=== PATIENT | female | born 1975 | race Caucasian/White ===

== ENCOUNTER → 2017-08-16 | Outpatient (CLI) | payer OTHER ==
[~2017-08-16] MED LIST: AZIT500T3 PO
--- NOTE | 2017-08-16 09:39 | DIAGNOSTIC IMAGING REPORT ---
TWO VIEW CHEST CLINICAL HISTORY: Migraine headache. Cough. FINDINGS: PA and lateral chest radiographs are compared to study dated 05/31/2013. The cardiomediastinal silhouette is unremarkable. The lungs and pleural spaces are clear. There is no pneumothorax. The bony thorax appears intact. IMPRESSION: No active disease in the chest. Electronically signed by: Robert Rodriguez M.D. 08/16/2017 9:38 AM Dictated Date/Time: 08/16/2017 9:37 AM
== END | disposition home or self-care (01) ==
LOC: C.RAD1850 09:11
PROVIDERS: ATTEND Internal Medicine
DX: G43.909 Migraine, unspecified, not intractable, without status migrainosus (principal); R05 Cough

== ENCOUNTER 2019-03-05 22:15 | Inpatient (IN) ==
--- OUTSIDE RECORDS SUMMARY | 2019-03-05 22:18 | External Medical Summary | Continuity of Care Document ---
:1975 Author Name Cindi Rodriges, Provider Address Unavailable Unavailable , Care Team Providers Name Role Phone Michelle [email or web address] MICHELLE WILLIAM M.D. Unavailable Unavailable Unavailable Unavailable Unavailable Problems Cough (786.2) (R05) History of squamous cell carcinoma (V10.89) (Z85.89) Status: Resolved Migraine headache (346.90) (G43.909) Depression (311) (F32.9) Anxiety (300.00) (F41.9) Allergies and Adverse Reactions No Known Drug Allergies (Allergy) Medications hydrOXYzine Pamoate 50 MG Oral Capsule; TAKE 1 CAPSULE 3 TIMES DAILY NEEDED. Antelmo William Start: 06-Aug-2017 Quantity: 30 Refills: 1 FLUoxetine HCl - 20 MG Oral Capsule; TAKE 1 CAPSULE Daily Start: 06-Aug-2017 Quantity: 30 Refills: 6 Procedures History of ablation Status: Completed Immunizations Fluzone Quadrivalent 0.5 ML Intramuscular Suspension On: Jan-2015 Tdap (Adacel) On: 05-Oct-2015 Family History Grandmother Family history of Alcohol abuse (305.00) (F10.10) Status: Ac tive Grandfather Family history of Alcohol abuse (305.00) (F10.10) Status: Ac tive Sister Family history of seizures (V19.8) (Z84.89) Status: Active Social History - Smoking Status Former smoker Plan of Treatment Planned Observations Planned Goals not documented Results No Known Results Results not documented Encounters Appointment; Michelle William M.D. 06-Aug-2017 13:30 Encounter Diagnosis: Problem not documented Appointment; [place] [id number] 06-Aug-2017 13:15 Encounter Diagnosis: Problem not documented
[2019-03-05 22:49] LABS: Appearance Urine Cloudy (Clear); Bacteria Urine Automated 1+ (Negative); Bilirubin Urine Negative (Negative); Blood Urine Negative (Negative); Color Urine Yellow; Epithelial Cell Urine Auto >30 /lpf (0-5); Glucose Urine UA Negative (Negative); Ketones Urine Negative (Negative); Leukocyte Esterase Urine Negative (Negative); Nitrite Urine Negative (Negative); Protein Urine Negative (Negative); RBC Urine Automated 0-4 /hpf (0-4); Specific Gravity Urine 1.011 (1.000-1.030); Urobilinogen Urine Negative (Negative); pH Urine 5.5 (4.5-7.5)
[2019-03-05 23:07] LABS: Amphetamines+Metham, Urine Neg (Neg); Barbiturates, Urine Neg (Neg); Benzodiazepine, Urine Neg (Neg); Cocaine, Urine Neg (Neg); MDMA (Ecstacy), Urine Neg (Neg); Methadone, Urine Neg (Neg); Opiate, Urine Neg (Neg); Phencyclidine, Urine Neg (Neg)
[2019-03-05 23:08] LABS: Basophils # (auto) 0.02 K/uL (0-0.2); Basophils % (auto) 0.2 %; Eosinophils % (auto) 1.2 %; Hematocrit (blood only) 41.5 % (37-47); Hemoglobin 14.4 g/dL (12.0-16.0); Immature Granulocytes # (auto) 0.02 K/uL (0.00-0.02); Immature Granulocytes % (auto) 0.2 %; Lymphocytes # (auto) 2.12 K/uL (1.2-3.4); Lymphocytes % (auto) 25.4 %; Mean Corpuscular Hemoglobin 30.3 pg (25-34); Mean Corpuscular Hgb Conc 34.7 g/dL (32-36); Mean Corpuscular Volume 87.2 fL (80-100); Mean Platelet Volume 8.9 fL (7.4-10.4); Monocytes # (auto) 0.43 K/uL (0.11-0.59); Monocytes % (auto) 5.1 %; Neutrophils # (auto) 5.67 K/uL (1.4-6.5); Neutrophils % (auto) 67.9 %; Platelet Count 388 K/uL (130-400); RDW Coefficient of Variation 12.6 % (11.5-14.5); RDW Standard Deviation 40.6 fL (36.4-46.3); Red Blood Count 4.76 M/uL (4.2-5.4); White Blood Count 8.36 K/uL (4.8-10.8)
[2019-03-05 23:27] LABS: Albumin Level 3.5 gm/dl (3.4-5.0); BUN Creatinine Ratio 12.8 (10-20); Calcium 8.9 mg/dl (8.5-10.1); Est GFR (African American) 70.4; Est GFR (Non-African American) 60.8; Potassium 3.7 mmol/L (3.5-5.1)
[2019-03-05 23:30] LABS: Acetaminophen < 2 ug/ml (10-30)
[2019-03-05 23:31] LABS: Salicylate < 1.7 mg/dl (2.8-20)
[2019-03-05 23:34] LABS: Pregnancy Test, Serum Negative (Negative)
[2019-03-05 23:37] LABS: Bilirubin,Total 0.2 mg/dl (0.2-1); Globulin 3.7 gm/dl (2.5-4.0); Thyroid Stimulating Hormone 3.45 uIu/ml (0.300-4.500); Total Protein 7.2 gm/dl (6.4-8.2)
--- NOTE | 2019-03-05 23:59 | Emergency Department Note ---
Entered by Shaista Patino acting as a scribe for Jose Colin MD History of Present Illness General Chief complaint: Mental Health Evaluation Stated complaint: DEPRESSION Time Seen by Provider: 03/05/19 22:24 Source: patient History of Present Illness Provider complaint: suicidal ideation Onset (ago): minute(s) (prior to arrival ) Location: left and right Severity: similar to prior episodes Maximum Pain Intensity: 0 Quality: + other (suicidal ideation) Associated symptoms: + other (Positive lethargy; Negative lower extremity pain; Negative lower extremity swelling. ) Treatments prior to arrival: none The patient, who is a 43 year old female with a medical history of bipolar two depression, presents to the Emergency Room with complaints of suicidal ideation that has worsened tonight. The patient expresses that she has a suicidal plan, which is to drink vodka, overdose on her medication and cut her wrist in the bathroom. The patient states that she has been having these thoughts in the middle of January. The patient explains that she has delayed proceeding on her plan due to her mother and daughters birthdays. The patient reports that she attempted to hurt herself 5 years ago by medication overdose. The patient reports the she has recently had a change of medication that has not had the same effect as prior. The patient states that her medication was changed due to weight gain. The patient denies excessive drinking or drug use. The patient states that she is very lethargic and her job is her only motivation to leave her bed. The patient denies lower extremity pain or swelling. Home Medications Home Medications Medication Instructions Recorded Confirmed Type buspirone 10 mg PO BID 03/05/19 03/05/19 History fluoxetine 20 mg PO QAM 03/05/19 03/05/19 History fluoxetine 40 mg PO QAM 03/05/19 03/05/19 History hydroxyzine HCl 25 mg PO TID PRN 03/05/19 03/05/19 History lurasidone [Latuda] 20 mg PO DAILY 03/05/19 03/05/19 History topiramate 50 mg PO BID 03/05/19 03/05/19 History trazodone 100 mg PO ONCE PM 03/05/19 03/05/19 History Allergies Allergy/AdvReac Type Severity Reaction Status Date / Time No Known Allergies Allergy Unknown Verified 03/05/19 22:44 Past Med/Surg History Medical History Acute bronchitis (Acute) Diarrhea (Acute) Influenza-like symptoms (Acute) Noncompliance with medication regimen (Acute) Suicidal ideation (Acute) Suicidal ideation (Acute) Upper respiratory infection (Acute) Social History Feels Safe at Home: Yes Smoking Status: Former smoker Review of Systems See HPI for pertinent positives & negatives. and A total of 10 systems reviewed and were otherwise negative Physical Exam Vital Signs Vital Signs - 24 hr 03/05/19 22:16 03/06/19 01:01 Temperature 36.7 C Temperature Source Oral Sepsis Recent Fever Within 48 Hours No Sepsis New/Unexplained Change in Mental Status No Sepsis Action Taken by Nursing No Action Required Pulse Rate 105 H Pulse Rate [Finger] 78 Respiratory Rate 18 18 Respiratory Effort / Characteristics Non-Labored Spontaneous Respiratory Depth Normal Blood Pressure 186/105 H Blood Pressure [Right Arm] 137/92 Blood Pressure Mean 132 Blood Pressure Mean [Right Arm] 107 Pulse Oximetry 98 98 Oxygen Delivery Method Room Air Room Air General: teary-eyed appearing middle age female that is very depressed. HEENT: Normal cephalic atraumatic. Pupils are equal round and reactive to light. Extraocular movements are intact. Oropharynx is pink with moist mucous membranes. No swelling of the mouth lips or tongue. Neck: Supple with a midline trachea. No meningeal signs or stiffness, no JVD or bruits. No Stridor. Chest: Clear to auscultation bilaterally. No wheezes or rhonchi. No increased work of breathing. Heart: regular rate and rhythm. Abdomen: Soft nontender, nondistended without rebound guarding or rigidity. Extremities: No cyanosis clubbing or edema. No calf tenderness or asymmetry Spine/Back. Non tender to palpation. No CVA tenderness Skin: Good turgor without rashes. Neurologic exam: Cranial nerves two through 12 are intact. Motor and sensation are intact and symmetrical throughout. Alert and oriented x3. Answers questions appropriately. Psychology: Teary eye and has suicidal ideation. Denies homicidal ideation. Course 2226: Past medical records reviewed. The patient was evaluated in room A7. A complete history and physical exam was performed. 2335: I reassessed the patient who is medically cleared. 3 south will evaluate her for further management. Medical Decision Making Differential Diagnosis Differential diagnosis includes: depression, anxiety, suicidal ideation, electrolyte or metabolic abnormalities, toxicological, as well as others were entertained. Medical Records Attestation: I reviewed the patient's medical records. Home Medications Current Medication List: was personally reviewed by me Laboratory Data Attestation: I reviewed the patient's lab results. Result diagrams: 03/05/19 23:00 03/05/19 23:00 Lab Results 03/05/19 03/05/19 03/05/19 Range/Units 22:36 22:36 23:00 WBC (4.8-10.8) K/uL RBC (4.2-5.4) M/uL Hgb (12.0-16.0) g/dL Hct (37-47) % MCV (80-100) fL MCH (25-34) pg MCHC (32-36) g/dL RDW Std Deviation (36.4-46.3) fL RDW Coeff of Landy (11.5-14.5) % Plt Count (130-400) K/uL MPV (7.4-10.4) fL Immature Gran % (Auto) % Neut % (Auto) % Lymph % (Auto) % [place] % (Auto) % Eos % (Auto) % Baso % (Auto) % Immature Gran # (Auto) (0.00-0.02) K/uL Neut # (Auto) (1.4-6.5) K/uL Lymph # (Auto) (1.2-3.4) K/uL [place] # (Auto) (0.11-0.59) K/uL Eos # (Auto) (0-0.5) K/uL Baso # (Auto) (0-0.2) K/uL Sodium (136-145) mmol/L Potassium (3.5-5.1) mmol/L Chloride (98-107) mmol/L Carbon Dioxide (21-32) mmol/L Anion Gap (3-11) BUN (7-18) mg/dl Creatinine (0.6-1.2) mg/dl Est Cr Clr Drug Dosing ml/min Est GFR ( Amer) Est GFR (Non-Af Amer) BUN/Creatinine Ratio (10-20) Glucose (70-99) mg/dl Calcium (8.5-10.1) mg/dl Total Bilirubin (0.2-1) mg/dl AST (15-37) U/L ALT (12-78) U/L Alkaline Phosphatase (45-117) U/L Total Protein (6.4-8.2) gm/dl Albumin (3.4-5.0) gm/dl Globulin (2.5-4.0) gm/dl Albumin/Globulin Ratio (0.9-2) TSH (0.300-4.500) uIu/ml HCG, Qual Negative (Negative) Urine Color Yellow Urine Appearance Cloudy A (Clear) Urine pH 5.5 (4.5-7.5) Ur Specific [place] 1.011 (1.000-1.030) Urine Protein Negative (Negative) Urine Glucose (UA) Negative (Negative) Urine Ketones Negative (Negative) Urine Blood Negative (Negative) Urine Nitrite Negative (Negative) Urine Bilirubin Negative (Negative) Urine Urobilinogen Negative (Negative) Ur Leukocyte Esterase Negative (Negative) Urine WBC (Auto) 5-10 H (0-5) /hpf Urine RBC (Auto) 0-4 (0-4) /hpf U Hyaline Cast (Auto) 1-5 (0-5) /lpf U Epithel Cells (Auto) >30 H (0-5) /lpf Urine Bacteria (Auto) 1+ H (Negative) Salicylates (2.8-20) mg/dl Urine Opiates Screen Neg (Neg) Ur Methadone, Qual Neg (Neg) Acetaminophen (10-30) ug/ml Urine Barbiturates Neg (Neg) Ur Phencyclidine (PCP) Neg (Neg) U Amphetamin/Meth Scrn Neg (Neg) MDMA (Ecstasy) Screen Neg (Neg) U Benzodiazepines Scrn Neg (Neg) Ur Cocaine Metabolite Neg (Neg) U Marijuana (THC) Screen Neg (Neg) Ethyl Alcohol mg/dL (0-3) mg/dl 03/05/19 03/05/19 03/05/19 Range/Units 23:00 23:00 23:00 WBC 8.36 (4.8-10.8) K/uL RBC 4.76 (4.2-5.4) M/uL Hgb 14.4 (12.0-16.0) g/dL Hct 41.5 (37-47) % MCV 87.2 (80-100) fL MCH 30.3 (25-34) pg MCHC 34.7 (32-36) g/dL RDW Std Deviation 40.6 (36.4-46.3) fL RDW Coeff of Landy 12.6 (11.5-14.5) % Plt Count 388 (130-400) K/uL MPV 8.9 (7.4-10.4) fL Immature Gran % (Auto) 0.2 % Neut % (Auto) 67.9 % Lymph % (Auto) 25.4 % [place] % (Auto) 5.1 % Eos % (Auto) 1.2 % Baso % (Auto) 0.2 % Immature Gran # (Auto) 0.02 (0.00-0.02) K/uL Neut # (Auto) 5.67 (1.4-6.5) K/uL Lymph # (Auto) 2.12 (1.2-3.4) K/uL [place] # (Auto) 0.43 (0.11-0.59) K/uL Eos # (Auto) 0.10 (0-0.5) K/uL Baso # (Auto) 0.02 (0-0.2) K/uL Sodium 139 (136-145) mmol/L Potassium 3.7 (3.5-5.1) mmol/L Chloride 109 H (98-107) mmol/L Carbon Dioxide 20 L (21-32) mmol/L Anion Gap 10.0 (3-11) BUN 14 (7-18) mg/dl Creatinine 1.11 (0.6-1.2) mg/dl Est Cr Clr Drug Dosing 77.0 ml/min Est GFR ( Amer) 70.4 Est GFR (Non-Af Amer) 60.8 BUN/Creatinine Ratio 12.8 (10-20) Glucose 108 H (70-99) mg/dl Calcium 8.9 (8.5-10.1) mg/dl Total Bilirubin 0.2 (0.2-1) mg/dl AST 10 L (15-37) U/L ALT 17 (12-78) U/L Alkaline Phosphatase 74 (45-117) U/L Total Protein 7.2 (6.4-8.2) gm/dl Albumin 3.5 (3.4-5.0) gm/dl Globulin 3.7 (2.5-4.0) gm/dl Albumin/Globulin Ratio 1.0 (0.9-2) TSH 3.450 (0.300-4.500) uIu/ml HCG, Qual (Negative) Urine Color Urine Appearance (Clear) Urine pH (4.5-7.5) Ur Specific [place] (1.000-1.030) Urine Protein (Negative) Urine Glucose (UA) (Negative) Urine Ketones (Negative) Urine Blood (Negative) Urine Nitrite (Negative) Urine Bilirubin (Negative) Urine Urobilinogen (Negative) Ur Leukocyte Esterase (Negative) Urine WBC (Auto) (0-5) /hpf Urine RBC (Auto) (0-4) /hpf U Hyaline Cast (Auto) (0-5) /lpf U Epithel Cells (Auto) (0-5) /lpf Urine Bacteria (Auto) (Negative) Salicylates < 1.7 L (2.8-20) mg/dl Urine Opiates Screen (Neg) Ur Methadone, Qual (Neg) Acetaminophen < 2 L (10-30) ug/ml Urine Barbiturates (Neg) Ur Phencyclidine (PCP) (Neg) U Amphetamin/Meth Scrn (Neg) MDMA (Ecstasy) Screen (Neg) U Benzodiazepines Scrn (Neg) Ur Cocaine Metabolite (Neg) U Marijuana (THC) Screen (Neg) Ethyl Alcohol mg/dL (0-3) mg/dl 03/05/19 Range/Units 23:00 WBC (4.8-10.8) K/uL RBC (4.2-5.4) M/uL Hgb (12.0-16.0) g/dL Hct (37-47) % MCV (80-100) fL MCH (25-34) pg MCHC (32-36) g/dL RDW Std Deviation (36.4-46.3) fL RDW Coeff of Landy (11.5-14.5) % Plt Count (130-400) K/uL MPV (7.4-10.4) fL Immature Gran % (Auto) % Neut % (Auto) % Lymph % (Auto) % [place] % (Auto) % Eos % (Auto) % Baso % (Auto) % Immature Gran # (Auto) (0.00-0.02) K/uL Neut # (Auto) (1.4-6.5) K/uL Lymph # (Auto) (1.2-3.4) K/uL [place] # (Auto) (0.11-0.59) K/uL Eos # (Auto) (0-0.5) K/uL Baso # (Auto) (0-0.2) K/uL Sodium (136-145) mmol/L Potassium (3.5-5.1) mmol/L Chloride (98-107) mmol/L Carbon Dioxide (21-32) mmol/L Anion Gap (3-11) BUN (7-18) mg/dl Creatinine (0.6-1.2) mg/dl Est Cr Clr Drug Dosing ml/min Est GFR ( Amer) Est GFR (Non-Af Amer) BUN/Creatinine Ratio (10-20) Glucose (70-99) mg/dl Calcium (8.5-10.1) mg/dl Total Bilirubin (0.2-1) mg/dl AST (15-37) U/L ALT (12-78) U/L Alkaline Phosphatase (45-117) U/L Total Protein (6.4-8.2) gm/dl Albumin (3.4-5.0) gm/dl Globulin (2.5-4.0) gm/dl Albumin/Globulin Ratio (0.9-2) TSH (0.300-4.500) uIu/ml HCG, Qual (Negative) Urine Color Urine Appearance (Clear) Urine pH (4.5-7.5) Ur Specific [place] (1.000-1.030) Urine Protein (Negative) Urine Glucose (UA) (Negative) Urine Ketones (Negative) Urine Blood (Negative) Urine Nitrite (Negative) Urine Bilirubin (Negative) Urine Urobilinogen (Negative) Ur Leukocyte Esterase (Negative) Urine WBC (Auto) (0-5) /hpf Urine RBC (Auto) (0-4) /hpf U Hyaline Cast (Auto) (0-5) /lpf U Epithel Cells (Auto) (0-5) /lpf Urine Bacteria (Auto) (Negative) Salicylates (2.8-20) mg/dl Urine Opiates Screen (Neg) Ur Methadone, Qual (Neg) Acetaminophen (10-30) ug/ml Urine Barbiturates (Neg) Ur Phencyclidine (PCP) (Neg) U Amphetamin/Meth Scrn (Neg) MDMA (Ecstasy) Screen (Neg) U Benzodiazepines Scrn (Neg) Ur Cocaine Metabolite (Neg) U Marijuana (THC) Screen (Neg) Ethyl Alcohol mg/dL < 3.0 (0-3) mg/dl Blood Pressure Blood Pressure Findings: Normal blood pressure MDM Narrative This patient comes in as described above. She has a history of bipolar and has been feeling increasingly depressed over the last several weeks she has had suicidal ideations and has had a plan to overdose she has not overdosed. She did not try to hurt herself she has a remote history of overdose several years ago. During my exam she is teary-eyed. She denies any homicidal ideations. She was a year ago and has joint custody of the children the kids have not been with her this week. She does not drink alcohol appreciably. No drug use. Multiple blood testing was obtained she is medically cleared she is willing to be admitted voluntarily and we will have 3 S. did see her and will be admitting her for further treatment and evaluation . Impression & Plan Suicidal ideation, Depression, Weight gain due to medication, Anxiety Discharge Plan Visit Data Chief Complaint: Mental Health Evaluation Stated Complaint: DEPRESSION ED Provider: Jose Colin Discharge Problem: Suicidal ideation, Depression, Weight gain due to medication, Anxiety Patient Disposition: Transfer Behavioral Health Fac Forms Stand Alone Forms: [facility], Suicide Prevention Resources Prescriptions Prescriptions: No Action fluoxetine 40 mg capsule 40 mg PO QAM RF: 0 buspirone 10 mg tablet 10 mg PO BID RF: 0 fluoxetine 20 mg capsule 20 mg PO QAM RF: 0 trazodone 100 mg tablet 100 mg PO ONCE PM RF: 0 hydroxyzine HCl 25 mg tablet 25 mg PO TID PRN (Reason: Anxiety) RF: 0 topiramate 50 mg tablet 50 mg PO BID RF: 0 Latuda 20 mg tablet 20 mg PO DAILY RF: 0 Referrals Referrals: Nati Walker M.D. [Primary Care Provider] - The [email or web address]'s documentation has been prepared under my direction and personally r eviewed by me in its entirety. I confirm that the note above accurately reflects all work, treatment, procedures, and medical decision making performed by me.
[2019-03-06] MEDS ORDERED: MAGNESIUM HYDROXIDE SUSP 30 ML UDC PO PRN (01:35)
[2019-03-06] MEDS ORDERED: ALUMINUM/MAGNESIUM SUSP 30 ML UDC PO PRN (01:35)
[2019-03-06] MEDS ORDERED: BISMUTH SUBSALICYLATE PER ML OMNICELL CHARGE PO PRN (01:35)
[2019-03-06] MEDS ORDERED: SODIUM CHLORIDE 0.65% NA SOLN 45 ML (OCEAN) PRN (01:35)
[2019-03-06] MEDS: ACETAMINOPHEN 325 MG TAB PO PRN ×2 (02:53→11:16)
[2019-03-06] MEDS: TOPIRAMATE 50 MG TAB PO SCH ×2 (08:35→21:08)
[2019-03-06] MEDS: FLUOXETINE HCL 20 MG CAP PO SCH (08:35)
[2019-03-06] MEDS ORDERED: FLUOXETINE HCL 20 MG CAP PO SCH (09:00)
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
[2019-03-06] MEDS ORDERED: ZIPRASIDONE HCL 20 MG CAP PO ONE (17:15)
[2019-03-06] MEDS: TRAZODONE HCL 100 MG TAB PO SCH (21:08)
[2019-03-07 07:33] LABS: Glucose Fasting 90 mg/dl (70-99)
[2019-03-07 07:39] LABS: Chol HDL Ratio 4; Cholesterol 239 mg/dl (0-200); HDL Cholesterol 56 mg/dl; LDL Cholesterol Calculated 153 mg/dl; Triglycerides 152 mg/dl (0-150); VLDL Cholesterol 30 mg/dl
[2019-03-07] MEDS: TOPIRAMATE 50 MG TAB PO SCH (08:31)
[2019-03-07] MEDS: lamoTRIgine 25 MG TAB PO SCH (08:31)
[2019-03-07] MEDS: FLUOXETINE HCL 20 MG CAP PO SCH (08:31)
[2019-03-07] MEDS: ZIPRASIDONE HCL 20 MG CAP PO SCH (08:31)
--- NOTE | 2019-03-07 11:07 | Psychiatric Progress Note ---
Date of Service March 07, 2019 Impression / Recommendations Impression 43-year-old female admitted voluntarily for inpatient psychiatric treatment on 03/06/2019 due to reports of worsening depression and suicidal ideation. Patient verbalizes a plan to overdose in combination with drinking alcohol, and provided a rather detailed plan for how she would end her life. Patient states that she has noticed worsening of mood since 09/2018, and has had adverse effects with several medication trials in the interim. Pt was agreeable with initiating ziprasidone, according to outpatient treatment plan. We will also initiate lamotrigine, given limited need for blood draws and general weight neutrality. Ideally, ziprasidone would function to stabilize mood while lamotrigine is being titrated to therapeutic dosing. It may be possible to discontinue ziprasidone on an outpatient basis, if lamotrigine is effective singularly for mood stabilization. Patient will be encouraged to participate in group and recreational programming. She will be encouraged to involve outpatient supports in a family meeting to discuss discharge and safety planning. Inpatient psychiatric treatment is medically necessary at this time given suicidal ideation with detailed plan, prior history of suicide attempt by overdose, prolonged depressive episode, and inability to contract for safety outside of the hospital setting. Patient remains at acute risk of harm to self if she is discharged prematurely, without adequate medication of risk factors. (1) Suicidal ideation: 03/06 - Admitted to a locked inpatient behavioral health unit, on q15 minute safety checks - Encourage medication initiation/adjustments as indicated - Encourage participation in group and recreational therapies - Gather collateral information from outpatient providers - Suggest family meeting to involve outpatient supports in safety planning - Arrange appropriate aftercare 03/07 - Admits to ongoing SI, verbalizing inability to contract for safety outside of the hospital setting - Pt states, "I'd be in the same place, requesting to come here." (2) Bipolar disorder: 03/06 - Request outpatient psychiatric records to clarify diagnosis - seems consistent most recently with bipolar type II, though prior reported behaviors would possibly meet criteria for elba - Will attempt to gather additional clinical information from outpatient psychiatric records - Pt agreeable with initiation of ziprasidone 20mg daily, a plan previously set into motion by her outpatient psychiatric prescriber. Will be provided this evening with dinner, then adjusted to breakfast dosing at patient's preference - Will initiate lamotrigine 25mg qAM starting tomorrow morning. Given patient's belief the medication had been effective for mood in the past and concerns for weight gain with atypical agents. Will attempt to stabilize mood with ziprasidone while lamotrigine is being titrated to a therapeutic dose range. - Both medications were initiated after thorough discussion of risks, benefits, and potential interactions. Reviewed concern for potential Alcazar- Michele syndrome with initiation of lamotrigine. Patient verbalized un derstanding of topics discussed, and asked appropriate questions. She is agreeable with initiation of these medications. - Fasting glucose and lipid panel ordered for tomorrow morning - Encourage this patient in group and recreational programming, as well as development of healthy and effective coping strategies - Encourage patient to participate in a family meeting involving outpatient supports in discharge and safety planning - Coordinate care with outpatient psychiatric prescriber, refer for outpatient therapy services 03/07 - Continue medications as above, titrating ziprasidone to effective dose as tolerated - Encourage participation in group and recreational programming, as patient has been largely isolative - Encourage family meeting - Fasting labs reviewed: triglycerides mildly elevated at 152, total cholesterol elevated at 239. All other values WNL (3) Anxiety: 03/06 - Pt reports symptoms consistent with generalized anxiety disorder, also experiences panic attacks about once a month - Continue buspirone and fluoxetine - Hydroxyzine prn for acute anxiety - Encourage development of healthy and effective coping strategies Inventory Assets Strengths: Willingness for treatment, support of family and friends, current outpatient psychiatric prescriber Needs: Adjustments to medication regimen to target symptoms of depression and suicidal ideation, referral for outpatient psychiatry, development of a safety plan Risk Factors Assessment Male: No : Yes Do You Have Access To A Gun?: No Health Problems: No Mental Health Diagnoses: Yes Substance Use Disorders: No Previous Attempt: Yes Family History of Suicide: No Previous Psychiatric Hospitalization: Yes Hopelessness: Yes Smoker: Yes (quit 2 weeks ago) Protective Factors Assessment Yazdanism Beliefs: No : No Responsible for Young Children: Yes Employed: Yes ([employer]) Stable Relationships: No Supportive Family: Yes Interval History Identifying Information LUCY DELANEY is a 43-year-old F who currently lives in [place], with [id number] custody of her two teenage children. Pt has a reported history of bipolar disorder, and was admitted on 03/06/19 01:35 on a 201 voluntary commitment for worsening depression and suicidal ideation, with plan to overdose in combination with alcohol, and slit her wrists. Chief Complaint "I'm just blah today." Review of Systems Notes Constitutional: denied Cardiovascular: denied Respiratory: denied Gastrointestinal: denied Neurological: denied Psychiatric: denies symptoms other than stated above Total of at least 10 systems reviewed, pertinent positives as above and in HPI. Sleep Information Total Hours of Sleep: 7.75 Sleep Comments: pt on q-15 minute checks Meal Information Percent Meal Consumed - Breakfast: 75 Percent Meal Consumed - Dinner: 100 Subjective Subjective Patient was seen & assessed and interval progress reviewed with nursing and social work. Staff report the patient has been somewhat isolative, though did attend some groups yesterday evening. She did decline for her ex- to bring her children to visit. Pt was seen today to assess progress since admission. She states that she is feeling "just blah" today, and admits to ongoing depressed mood. She is observed while laying in bed, stating "this is what I would be doing at home." Pt was encouraged to attend some groups today, in order to distract negative thoughts and begin working on developing coping strategies - she was agreeable to doing this. Pt states that she is continuing to have passive suicidal ideation, stating it is only passive as "it feels like it's not an option here." She states that she "scared myself" with regard to her plans to end her life. She states, "I had everything ready. I bought the liquor from the store, I went to the drug store to buy the razor blades." She states that she does not feel she would be able to contract for safety, as "I think I'd be right where I am now, asking for help." Pt feels as though her condition has not yet been improving, but is willing to attend groups this afternoon as a way to stay out of her room. She denies other needs or concerns at this time. Physical Exam Psychiatric Orientation: alert, oriented x 3 and cooperative Apperance: appropriately dressed, + disheveled (hair is matted down in area) and appeared stated age Eye Contact: good eye contact Motor Behavior: no abnormal motor movements (observed while sitting upright in bed) Speech: normal rate/rhythm/volume of speech Affect: + depressed affect, + tearful affect and mood congruent with affect Mood: + depressed mood ("just blah" and "still depressed") Thought Process: goal directed thought process, clear/coherent thought process and thought association intact Thought Content: reality based without delusions, + hopelessness, + worthlessness and + loneliness Suicidal Thoughts: denies suicidal intent; + reports suicidal thoughts and + reports suicidal plan Homicidal Thoughts: denies homicidal thoughts Hallucinations: no auditory hallucinations and no visual hallucinations Cognition: attention grossly intact and language grossly intact Insight: + fair insight Judgement: + fair judgement Vital Signs (Past 24 Hours) Last Vital Signs Temp 36.6 C 03/07/19 06:46 Pulse 76 03/07/19 06:47 Resp 18 03/07/19 06:46 BP 122/85 03/07/19 06:47 Pulse Ox 97 03/06/19 02:32 Results & Data Laboratory Results Laboratory Results - last 24 hr 03/07/19 06:51 Fasting Glucose 90 Triglycerides 152 H Cholesterol 239 H LDL Cholesterol, Calc 153 VLDL Cholesterol, Calc 30 HDL Cholesterol 56 Cholesterol/HDL Ratio 4 Current Inpatient Medications Current Inpatient Medications: Current Inpatient Medications Acetaminophen (Tylenol) 650 mg PO Q4H PRN PRN Reason: Headache or Minor Fever Stop: 04/05/19 01:34 Last Admin: 03/06/19 11:16 Dose: 650 mg Documented by: Al Hydrox/Mg Hydrox/Simethicone (Maalox) 30 ml PO Q4H PRN PRN Reason: GI Upset Stop: 04/05/19 01:34 Bismuth Subsalicylate (Kaopectate) 15 ml PO PRN PRN PRN Reason: Loose Stool Stop: 04/05/19 01:34 Buspirone HCl (Buspar) 10 mg PO BID [facility] Stop: 04/05/19 08:59 Last Admin: 03/07/19 08:31 Dose: 10 mg Documented by: Fluoxetine HCl (Prozac) 60 mg PO QAM JA Stop: 04/05/19 08:59 Last Admin: 03/07/19 08:31 Dose: 60 mg Documented by: Hydroxyzine HCl (Vistaril) 25 mg PO Q4H PRN PRN Reason: Anxiety Stop: 04/05/19 01:34 Hydroxyzine HCl (Vistaril) 50 mg PO HSZ PRN PRN Reason: Insomnia Stop: 04/05/19 01:34 Last Admin: 03/06/19 02:53 Dose: 50 mg Documented by: Lamotrigine (Lamictal) 25 mg PO QAM JA Stop: 04/06/19 08:59 Last Admin: 03/07/19 08:31 Dose: 25 mg Documented by: Magnesium Hydroxide (Milk Of Magnesia) 30 ml PO DAILY PRN PRN Reason: Constipation Stop: 04/05/19 01:34 Sodium Chloride ([place] Nasal) 1 - 2 sprays NA PRN PRN PRN Reason: Nasal Dryness/Congestion Stop: 04/05/19 01:34 Topiramate (Topamax) 50 mg PO BID JA Stop: 04/05/19 08:59 Last Admin: 03/07/19 08:31 Dose: 50 mg Documented by: Trazodone HCl (Desyrel) 100 mg PO HS JA Stop: 04/05/19 21:59 Last Admin: 03/06/19 21:08 Dose: 100 mg Documented by: Ziprasidone (Geodon) 20 mg PO DAILYBB JA Stop: 04/06/19 07:59 Last Admin: 03/07/19 08:31 Dose: 20 mg Documented by: Mental Health & Subst Abuse Tx Psychiatrist Date of Appointment with Psychiatrist: 03/21/19 Time of Appointment with Psychiatrist: 8:15pm Therapist Name of Therapist: Marco Hussein - Dr Lorraine Aragon Printing Worker Supervisor Name of Printing Worker Supervisor: None Post Discharge Appointments Primary Care Physician Name Of Family Doctor: Dr. Walker - Marco Cortez (1) Bipolar disorder Active/Remission status: currently active Current bipolar episode type: depressed Current episode severity: severe Psychotic features: without psychotic features Qualified Code(s): F31.4 - Bipolar disorder, current episode depressed, severe, without psychotic features
[2019-03-07] MEDS: TRAZODONE HCL 100 MG TAB PO SCH (21:05)
[2019-03-08] MEDS: ZIPRASIDONE HCL 20 MG CAP PO SCH ×2 (08:38→19:53)
[2019-03-08] MEDS: FLUOXETINE HCL 20 MG CAP PO SCH (08:39)
[2019-03-08] MEDS: lamoTRIgine 25 MG TAB PO SCH (08:39)
--- NOTE | 2019-03-08 13:00 | Psychiatric Progress Note ---
Date of Service March 08, 2019 Impression / Recommendations Impression 43-year-old female admitted voluntarily for inpatient psychiatric treatment on 03/06/2019 due to reports of worsening depression and suicidal ideation. Patient verbalizes a plan to overdose in combination with drinking alcohol, and provided a rather detailed plan for how she would end her life. Patient states that she has noticed worsening of mood since 09/2018, and has had adverse effects with several medication trials in the interim. Pt was agreeable with initiating ziprasidone, according to outpatient treatment plan. We will also initiate lamotrigine, given limited need for blood draws and general weight neutrality. Ideally, ziprasidone would function to stabilize mood while lamotrigine is being titrated to therapeutic dosing. It may be possible to discontinue ziprasidone on an outpatient basis, if lamotrigine is effective singularly for mood stabilization. Patient will be encouraged to participate in group and recreational programming. She will be encouraged to involve outpatient supports in a family meeting to discuss discharge and safety planning. Inpatient psychiatric treatment is medically necessary at this time given suicidal ideation with detailed plan, prior history of suicide attempt by overdose, prolonged depressive episode, and inability to contract for safety outside of the hospital setting. Patient remains at acute risk of harm to self if she is discharged prematurely, without adequate medication of risk factors. (1) Suicidal ideation: 03/06 - Admitted to a locked inpatient behavioral health unit, on q15 minute safety checks - Encourage medication initiation/adjustments as indicated - Encourage participation in group and recreational therapies - Gather collateral information from outpatient providers - Suggest family meeting to involve outpatient supports in safety planning - Arrange appropriate aftercare 03/07 - Admits to ongoing SI, verbalizing inability to contract for safety outside of the hospital setting - Pt states, "I'd be in the same place, requesting to come here." 03/08 - Denies SI today, but states that she is still unable to contract for safety - Reports having had SI "all day, every day, since September" - and feels this is not consistently resolved (2) Bipolar disorder: 03/06 - Request outpatient psychiatric records to clarify diagnosis - seems consistent most recently with bipolar type II, though prior reported behaviors would possibly meet criteria for elba - Will attempt to gather additional clinical information from outpatient psychiatric records - Pt agreeable with initiation of ziprasidone 20mg daily, a plan previously set into motion by her outpatient psychiatric prescriber. Will be provided this evening with dinner, then adjusted to breakfast dosing at patient's preference - Will initiate lamotrigine 25mg qAM starting tomorrow morning. Given patient's belief the medication had been effective for mood in the past and concerns for weight gain with atypical agents. Will attempt to stabilize mood with ziprasidone while lamotrigine is being titrated to a therapeutic dose range. - Both medications were initiated after thorough discussion of risks, benefits, and potential interactions. Reviewed concern for potential Alcazar- Michele syndrome with initiation of lamotrigine. Patient verbalized understanding of topics discussed, and asked appropriate questions. She is agreeable with initiation of these medications. - Fasting glucose and lipid panel ordered for tomorrow morning - Encourage this patient in group and recreational programming, as well as development of healthy and effective coping strategies - Encourage patient to participate in a family meeting involving outpatient supports in discharge and safety planning - Coordinate care with outpatient psychiatric prescriber, refer for outpatient therapy services 03/07 - Continue medications as above, titrating ziprasidone to effective dose as tolerated - Encourage participation in group and recreational programming, as patient has been largely isolative - Encourage family meeting - Fasting labs reviewed: triglycerides mildly elevated at 152, total cholesterol elevated at 239. All other values WNL 03/08 - Ziprasidone being titrated to 20mg BIDM to better target mood-related symptoms - Pt strongly encouraged to consider bringing a support in for a meeting to discuss the severity of her symptoms and involve someone in safety planning - Continue to encourage group participation (3) Anxiety: 03/06 - Pt reports symptoms consistent with generalized anxiety disorder, also experiences panic attacks about once a month - Continue buspirone and fluoxetine - Hydroxyzine prn for acute anxiety - Encourage development of healthy and effective coping strategies Inventory Assets Strengths: Willingness for treatment, support of family and friends, current outpatient psychiatric prescriber Needs: Adjustments to medication regimen to target symptoms of depression and suicidal ideation, referral for outpatient psychiatry, development of a safety plan Risk Factors Assessment Male: No : Yes Do You Have Access To A Gun?: No Health Problems: No Mental Health Diagnoses: Yes Substance Use Disorders: No Previous Attempt: Yes Family History of Suicide: No Previous Psychiatric Hospitalization: Yes Hopelessness: Yes Smoker: Yes (quit 2 weeks ago) Protective Factors Assessment Jain Beliefs: No : No Responsible for Young Children: Yes 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 Pt has a reported history of bipolar disorder, and was admitted on 03/06/19 01:35 on a 201 voluntary commitment for worsening depression and suicidal ideation, with plan to overdose in combination with alcohol, and slit her wrists. Chief Complaint "Yesterday was a little better I think." Review of Systems Notes Constitutional: reports poor sleep last evening Cardiovascular: denied Respiratory: denied Gastrointestinal: denied Neurological: denied Psychiatric: denies symptoms other than stated above Total of at least 10 systems reviewed, pertinent positives as above and in HPI. Sleep Information Total Hours of Sleep: 7 Sleep Comments: pt on q-15 minute checks Meal Information Percent Meal Consumed - Breakfast: 75 Percent Meal Consumed - Lunch: 100 Percent Meal Consumed - Dinner: 50 Subjective Subjective Patient was seen & assessed and interval progress reviewed with treatment team. Staff reports the patient has been primarily withdrawn to her room. She does attend groups periodically. Patient rated her mood a 4/10 last evening, demonstrating only mild improvement since admission. Patient was seen today to assess progress since admission. She states that yesterday seemed "better I think." Patient reports benefiting from several group topics last evening, finding the explanation of anhedonia very helpful for her. Patient states that she notices lack of pleasure with relation to friendships and relationships is a common theme during depressed moods. Patient states she begins to not reach out to family and friends, and finds phone calls and visits less enjoyable. Patient states that she has not shared with anyone the severity of her symptoms. She admits to one friend at work who "at least knows that I am depressed." This provider spent time talking with the patient about including a support in a meeting, to discuss the severity of symptoms and assist with safety planning. Patient was able to tell this provider she would "do anything" for her friends if they were having a hard time, but struggled with accepting that her friends likely feel the same about her. Patient reports feeling that reaching out to her work friend would place an undue "burden" on her. We discussed the likely relief the patient would feel, knowing that at least one person is aware of her recent experiences. She was encouraged to consider having this conversation with a support while professionals are able to assist in the discussion. Patient states that she will consider whether she would like her friend or her mother involved in the meeting. Patient does states she slept poorly last evening, due to "dreams about doing it", meaning ending her life. Patient states "I had tried to kill myself, and remember waking up in the hospital. People were saying 'she can't even do that right'." This provider worked with the patient to disrupt and distract from these thoughts, rather than allowing constant rumination. Patient was asked to think about activities she could do immediately after the interview that may assist her with distracting herself from these thoughts. Patient states that she is planning to get up, shower, and began attending groups. Patient was encouraged in this, and asked to reach out to staff as needed throughout the day. Patient denies other needs or concerns at this time. Physical Exam Psychiatric Orientation: alert, oriented x 3 and cooperative (And pleasant) Apperance: appropriately dressed and + disheveled (Awoken from sleep, hair is unkempt and matted) Eye Contact: good eye contact Motor Behavior: no abnormal motor movements (Observed while sitting upright on bed) Speech: normal rate/rhythm/volume of speech Affect: + depressed affect, + tearful affect and mood congruent with affect Mood: + depressed mood (But states "yesterday was better I think", reporting mild improvement) Thought Process: goal directed thought process, clear/coherent thought process and thought association intact Thought Content: reality based without delusions, + hopelessness, + loneliness and + guilt Suicidal Thoughts: denies suicidal thoughts (At time of assessment) Patient reports concern regarding the duration and severity of suicidal thoughts. She is not presently able to contract for safety outside of the hospital setting. Homicidal Thoughts: denies homicidal thoughts Hallucinations: no auditory hallucinations and no visual hallucinations Cognition: attention grossly intact and language grossly intact Insight: + fair insight Judgement: + fair judgement Vital Signs (Past 24 Hours) Last Vital Signs Temp 36.7 C 03/08/19 06:54 Pulse 88 03/08/19 06:54 Resp 18 03/08/19 06:54 BP 106/72 03/08/19 06:54 Pulse Ox 97 03/06/19 02:32 Results & Data Current Inpatient Medications Current Inpatient Medications: Current Inpatient Medications Acetaminophen (Tylenol) 650 mg PO Q4H PRN PRN Reason: Headache or Minor Fever Stop: 04/05/19 01:34 Last Admin: 03/06/19 11:16 Dose: 650 mg Documented by: Al Hydrox/Mg Hydrox/Simethicone (Maalox) 30 ml PO Q4H PRN PRN Reason: GI Upset Stop: 04/05/19 01:34 Bismuth Subsalicylate (Kaopectate) 15 ml PO PRN PRN PRN Reason: Loose Stool Stop: 04/05/19 01:34 Buspirone HCl (Buspar) 10 mg PO BID JA Stop: 04/05/19 08:59 Last Admin: 03/08/19 08:39 Dose: 10 mg Documented by: Fluoxetine HCl (Prozac) 60 mg PO QAM JA Stop: 04/05/19 08:59 Last Admin: 03/08/19 08:39 Dose: 60 mg Documented by: Hydroxyzine HCl (Vistaril) 25 mg PO Q4H PRN PRN Reason: Anxiety Stop: 04/05/19 01:34 Hydroxyzine HCl (Vistaril) 50 mg PO HSZ PRN PRN Reason: Insomnia Stop: 04/05/19 01:34 Last Admin: 03/06/19 02:53 Dose: 50 mg Documented by: Lamotrigine (Lamictal) 25 mg PO QAM JA Stop: 04/06/19 08:59 Last Admin: 03/08/19 08:39 Dose: 25 mg Documented by: Magnesium Hydroxide (Milk Of Magnesia) 30 ml PO DAILY PRN PRN Reason: Constipation Stop: 04/05/19 01:34 Sodium Chloride ([place] Nasal) 1 - 2 sprays NA PRN PRN PRN Reason: Nasal Dryness/Congestion Stop: 04/05/19 01:34 Trazodone HCl (Desyrel) 100 mg PO HS JA Stop: 04/05/19 21:59 Last Admin: 03/07/19 21:05 Dose: 100 mg Documented by: Mental Health & Subst Abuse Tx Psychiatrist Date of Appointment with Psychiatrist: 03/21/19 Time of Appointment with Psychiatrist: 8:15pm Therapist Name of Therapist: Marco Aragon Senior Radiation Therapist Name of Senior Radiation Therapist: None Post Discharge Appointments Primary Care Physician Name Of Family Doctor: Dr. Aaron Ornelas Marco Cortez (1) Bipolar disorder Active/Remission status: currently active Current bipolar episode type: depressed Current episode severity: severe Psychotic features: without psychotic features Qualified Code(s): F31.4 - Bipolar disorder, current episode depressed, severe, without psychotic features
[2019-03-08] MEDS: TRAZODONE HCL 100 MG TAB PO SCH (21:10)
[2019-03-09] MEDS: ZIPRASIDONE HCL 20 MG CAP PO SCH ×2 (09:45→17:24)
[2019-03-09] MEDS: lamoTRIgine 25 MG TAB PO SCH (09:45)
[2019-03-09] MEDS: FLUOXETINE HCL 20 MG CAP PO SCH (09:45)
--- NOTE | 2019-03-09 13:00 | Psychiatric Progress Note ---
Date of Service March 09, 2019 Impression / Recommendations Impression 43-year-old female admitted voluntarily for inpatient psychiatric treatment on 03/06/2019 due to reports of worsening depression and suicidal ideation. Patient verbalizes a plan to overdose in combination with drinking alcohol, and provided a rather detailed plan for how she would end her life. Patient states that she has noticed worsening of mood since 09/2018, and has had adverse effects with several medication trials in the interim. Pt was agreeable with initiating ziprasidone, according to outpatient treatment plan. We will also initiate lamotrigine, given limited need for blood draws and general weight neutrality. Ideally, ziprasidone would function to stabilize mood while lamotrigine is being titrated to therapeutic dosing. It may be possible to discontinue ziprasidone on an outpatient basis, if lamotrigine is effective singularly for mood stabilization. Patient will be encouraged to participate in group and recreational programming. She will be encouraged to involve outpatient supports in a family meeting to discuss discharge and safety planning. Inpatient psychiatric treatment is medically necessary at this time given suicidal ideation with detailed plan, prior history of suicide attempt by overdose, prolonged depressive episode, and inability to contract for safety outside of the hospital setting. Patient remains at acute risk of harm to self if she is discharged prematurely, without adequate medication of risk factors. (1) Suicidal ideation: 03/06 - Admitted to a locked inpatient behavioral health unit, on q15 minute safety checks - Encourage medication initiation/adjustments as indicated - Encourage participation in group and recreational therapies - Gather collateral information from outpatient providers - Suggest family meeting to involve outpatient supports in safety planning - Arrange appropriate aftercare 03/07 - Admits to ongoing SI, verbalizing inability to contract for safety outside of the hospital setting - Pt states, "I'd be in the same place, requesting to come here." 03/08 - Denies SI today, but states that she is still unable to contract for safety - Reports having had SI "all day, every day, since September" - and feels this is not consistently resolved 03/09 - Denies SI today, and admits to feeling more positive, but denies feeling as though she can contract for safety outside of the hospital setting (2) Bipolar disorder: 03/06 - Request outpatient psychiatric records to clarify diagnosis - seems consistent most recently with bipolar type II, though prior reported behaviors would possibly meet criteria for elba - Will attempt to gather additional clinical information from outpatient psychiatric records - Pt agreeable with initiation of ziprasidone 20mg daily, a plan previously set into motion by her outpatient psychiatric prescriber. Will be provided this evening with dinner, then adjusted to breakfast dosing at patient's preference - Will initiate lamotrigine 25mg qAM starting tomorrow morning. Given patient's belief the medication had been effective for mood in the past and concerns for weight gain with atypical agents. Will attempt to stabilize mood with ziprasidone while lamotrigine is being titrated to a therapeutic dose range. - Both medications were initiated after thorough discussion of risks, benefi ts, and potential interactions. Reviewed concern for potential Alcazar-Michele syndrome with initiation of lamotrigine. Patient verbalized understanding of topics discussed, and asked appropriate questions. She is agreeable with initiation of these medications. - Fasting glucose and lipid panel ordered for tomorrow morning - Encourage this patient in group and recreational programming, as well as development of healthy and effective coping strategies - Encourage patient to participate in a family meeting involving outpatient supports in discharge and safety planning - Coordinate care with outpatient psychiatric prescriber, refer for outpatient therapy services 03/07 - Continue medications as above, titrating ziprasidone to effective dose as tolerated - Encourage participation in group and recreational programming, as patient has been largely isolative - Encourage family meeting - Fasting labs reviewed: triglycerides mildly elevated at 152, total cholesterol elevated at 239. All other values WNL 03/08 - Ziprasidone being titrated to 20mg BIDM to better target mood-related symptoms - Pt strongly encouraged to consider bringing a support in for a meeting to discuss the severity of her symptoms and involve someone in safety planning - Continue to encourage group participation 03/09 - Continue medications as above, patient reporting overall improvement in condition - Pt participated in family meeting with ex-boyfriend today, he remains supportive but codependency was a theme during the meeting - Continue to encourage participation in group and recreational therapy (3) Anxiety: 03/06 - Pt reports symptoms consistent with generalized anxiety disorder, also experiences panic attacks about once a month - Continue buspirone and fluoxetine - Hydroxyzine prn for acute anxiety - Encourage development of healthy and effective coping strategies Inventory Assets Strengths: Willingness for treatment, support of family and friends, current outpatient psychiatric prescriber Needs: Adjustments to medication regimen to target symptoms of depression and suicidal ideation, referral for outpatient psychiatry, development of a safety plan Risk Factors Assessment Male: No : Yes Do You Have Access To A Gun?: No Health Problems: No Mental Health Diagnoses: Yes Substance Use Disorders: No Previous Attempt: Yes Family History of Suicide: No Previous Psychiatric Hospitalization: Yes Hopelessness: Yes Smoker: Yes (quit 2 weeks ago) Protective Factors Assessment L[employer] Day Beliefs: No : No Responsible for Young Children: Yes 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 Pt has a reported history of bipolar disorder, and was admitted on 03/06/19 01:35 on a 201 voluntary commitment for worsening depression and suicidal ideation, with plan to overdose in combination with alcohol, and slit her wrists. Chief Complaint "I think I am doing okay today." Review of Systems Notes Constitutional: denied Cardiovascular: denied Respiratory: denied Gastrointestinal: denied Neurological: denied Psychiatric: denies symptoms other than stated above Total of at least 10 systems reviewed, pertinent positives as above and in HPI. Sleep Information Total Hours of Sleep: 6.5 Sleep Comments: pt on q-15 minute checks Meal Information Percent Meal Consumed - Breakfast: 50 Percent Meal Consumed - Lunch: 50 Percent Meal Consumed - Dinner: 100 Subjective Subjective Patient was seen & assessed and interval progress reviewed with nursing and social work. Staff reports the patient has demonstrated some increased participation in group programming. She is agreeable to scheduling a meeting with her ex-boyfriend for today. Patient was seen today to assess progress [facility] e admission. She states that she thinks she is "okay" today. Patient was interviewed after attending activity group, in which they played a game where they bed on positive qualities they want to ambulate. Patient came into the interview room with the cards for "duran" and "hope." When asked what through the patient to these 2 particular words, she states "when I first came here, I had no hope." She states that she also hopes to find "the duran that things will get better." Patient states that she has been reading independently in her patient workbook, and came across a section on "positive affirmations." The patient states that she is planning to put post-its around her bathroom mirror of motivational statements, that she can remind herself of daily. Patient reports the meeting with her "ex-" (technically boyfriend of 6-7 years) went well, and the topic was primarily codependency. Patient states she was encouraged to read a book called Codependent No More, and that her ex-boyfriend plans to do the same. She reports it was discussed during the meeting that they have known each other since early college, and that they still have a supportive relationship, despite her ex-boyfriend now being remarried. Patient let a conversation with this provider about recognizing the value in her relationship with her ex-boyfriend, without putting expectations on him to fill a role that he is not meant to fill. We discussed how these inappropriate expectations can lead to as feeling let down and unloved. We also discussed how placing reasonable expectations in these relationships help us devalue them for exactly what they are. Patient was informed that the copy of this book is actually on our bookshelf, and requests that this provider find it so she can begin reading soon. Patient denies suicidal thoughts today, but states she is still significantly concerned that her thoughts may recur when she is out of the supportive environment. Patient believes that groups are helpful for her, and that her treatment is headed in the appropriate direction; however, she remains unable to contract for safety outside of the hospital at this time. She denies other needs or concerns presently. Physical Exam Psychiatric Orientation: alert, oriented x 3 and cooperative (And pleasant) Apperance: appropriately dressed, appropriately groomed (Hair is neatly styled, wearing corrective lenses a top head) and appeared stated age Eye Contact: good eye contact Motor Behavior: steady gait and station and no abnormal motor movements Speech: normal rate/rhythm/volume of speech Affect: + tearful affect (far less tearful over all), + blunted affect and mood congruent with affect Mood: + depressed mood ("Ok, I think things are getting better") Thought Process: goal directed thought process, clear/coherent thought process and thought association intact Thought Content: reality based without delusions; no hopelessness Suicidal Thoughts: denies suicidal thoughts and denies suicidal intent But remains unable to contract for safety outside of the hospital Homicidal Thoughts: denies homicidal thoughts Hallucinations: no auditory hallucinations and no visual hallucinations Cognition: attention grossly intact and language grossly intact Insight: + fair insight Judgement: + fair judgement Vital Signs (Past 24 Hours) Last Vital Signs Temp 36.6 C 03/09/19 06:38 Pulse 68 03/09/19 06:38 Resp 18 03/09/19 06:38 BP 120/75 03/09/19 06:39 Pulse Ox 97 03/06/19 02:32 Results & Data Current Inpatient Medications Current Inpatient Medications: Current Inpatient Medications Acetaminophen (Tylenol) 650 mg PO Q4H PRN PRN Reason: Headache or Minor Fever Stop: 04/05/19 01:34 Last Admin: 03/06/19 11:16 Dose: 650 mg Documented by: Al Hydrox/Mg Hydrox/Simethicone (Maalox) 30 ml PO Q4H PRN PRN Reason: GI Upset Stop: 04/05/19 01:34 Bismuth Subsalicylate (Kaopectate) 15 ml PO PRN PRN PRN Reason: Loose Stool Stop: 04/05/19 01:34 Buspirone HCl (Buspar) 10 mg PO BID [facility] Stop: 04/05/19 08:59 Last Admin: 03/09/19 09:44 Dose: 10 mg Documented by: Fluoxetine HCl (Prozac) 60 mg PO QAM JA Stop: 04/05/19 08:59 Last Admin: 03/09/19 09:45 Dose: 60 mg Documented by: Hydroxyzine HCl (Vistaril) 25 mg PO Q4H PRN PRN Reason: Anxiety Stop: 04/05/19 01:34 Hydroxyzine HCl (Vistaril) 50 mg PO HSZ PRN PRN Reason: Insomnia Stop: 04/05/19 01:34 Last Admin: 03/06/19 02:53 Dose: 50 mg Documented by: Lamotrigine (Lamictal) 25 mg PO QAM JA Stop: 04/06/19 08:59 Last Admin: 03/09/19 09:45 Dose: 25 mg Documented by: Magnesium Hydroxide (Milk Of Magnesia) 30 ml PO DAILY PRN PRN Reason: Constipation Stop: 04/05/19 01:34 Sodium Chloride (Gordon Nasal) 1 - 2 sprays NA PRN PRN PRN Reason: Nasal Dryness/Congestion Stop: 04/05/19 01:34 Trazodone HCl (Desyrel) 100 mg PO HS JA Stop: 04/05/19 21:59 Last Admin: 03/08/19 21:10 Dose: 100 mg Documented by: Ziprasidone (Geodon) 20 mg PO BIDM JA Stop: 04/07/19 17:44 Last Admin: 03/09/19 09:45 Dose: 20 mg Documented by: Mental Health & Subst Abuse Tx Psychiatrist Name of Psychiatrist: [facility]'s Date of Appointment with Psychiatrist: 03/21/19 Time of Appointment with Psychiatrist: 8:15pm Psychiatric Appointment Comment: [address], [place] [address] Therapist Name of Therapist: Marco Hussein - Dr Lorraine Aragon Therapist's Therapy Appointment Comment: [address], [place] [address] Child Welfare Manager Name of Child Welfare Manager: [facility] Phone Number for Child Welfare Manager: [phone] Case Management Appointment Comment: [address], [place] [address] Post Discharge Appointments Primary Care Physician Name Of Family Doctor: Dr. Aaron Cortez Primary [facility] Time of Appointment with PCP: Follow up as needed. Provider Appointment Comment: [address], [place] [address] Other #1: Name of Aftercare Appointment: [facility] Phone Number of Aftercare Appointment: [phone] [facility] [address] [facility] [place] ([facility]) Bipolar disorder Active/Remission status: currently active Current bipolar episode type: depressed Current episode severity: severe Psychotic features: without psychotic features Qualified Code(s): F31.4 - Bipolar disorder, current episode depressed, severe, without psychotic features
[2019-03-09] MEDS: TRAZODONE HCL 100 MG TAB PO SCH (21:26)
[2019-03-10] MEDS: ZIPRASIDONE HCL 20 MG CAP PO SCH ×2 (09:07→17:25)
[2019-03-10] MEDS: lamoTRIgine 25 MG TAB PO SCH (09:07)
[2019-03-10] MEDS: FLUOXETINE HCL 20 MG CAP PO SCH (09:08)
--- NOTE | 2019-03-10 09:22 | Psychiatric Progress Note ---
Date of Service March 10, 2019 Impression / Recommendations Impression 43-year-old female admitted voluntarily for inpatient psychiatric treatment on 03/06/2019 due to reports of worsening depression and suicidal ideation. Patient verbalizes a plan to overdose in combination with drinking alcohol, and provided a rather detailed plan for how she would end her life. Patient states that she has noticed worsening of mood since 09/2018, and has had adverse effects with several medication trials in the interim. Pt was agreeable with initiating ziprasidone, according to outpatient treatment plan. We will also initiate lamotrigine, given limited need for blood draws and general weight neutrality. Ideally, ziprasidone would function to stabilize mood while lamotrigine is being titrated to therapeutic dosing. It may be possible to discontinue ziprasidone on an outpatient basis, if lamotrigine is effective singularly for mood stabilization. Patient will be encouraged to participate in group and recreational programming. Pt decided to involve her ex-boyfriend in a meeting to discuss discharge and safety planning. Inpatient psychiatric treatment is medically necessary at this time given suicidal ideation with detailed plan, prior history of suicide attempt by overdose, prolonged depressive episode, and inability to contract for safety outside of the hospital setting. Patient remains at acute risk of harm to self if she is discharged prematurely, without adequate medication of risk factors. (1) Suicidal ideation: 03/06 - Admitted to a locked inpatient behavioral health unit, on q15 minute safety checks - Encourage medication initiation/adjustments as indicated - Encourage participation in group and recreational therapies - Gather collateral information from outpatient providers - Suggest family meeting to involve outpatient supports in safety planning - Arrange appropriate aftercare 03/07 - Admits to ongoing SI, verbalizing inability to contract for safety outside of the hospital setting - Pt states, "I'd be in the same place, requesting to come here." 03/08 - Denies SI today, but states that she is still unable to contract for safety - Reports having had SI "all day, every day, since September" - and feels this is not consistently resolved 03/09 - 03/10 - Denies SI today, and admits to feeling more positive, but denies feeling as though she can contract for safety outside of the hospital setting (2) Bipolar disorder: 03/06 - Request outpatient psychiatric records to clarify diagnosis - seems consistent most recently with bipolar type II, though prior reported behaviors would possibly meet criteria for elba - Will attempt to gather additional clinical information from outpatient psychiatric records - Pt agreeable with initiation of ziprasidone 20mg daily, a plan previously set into motion by her outpatient psychiatric prescriber. Will be provided this evening with dinner, then adjusted to breakfast dosing at patient's preference - Will initiate lamotrigine 25mg qAM starting tomorrow morning. Given patient's belief the medication had been effective for mood in the past and concerns for weight gain with atypical agents. Will attempt to stabilize mood with ziprasidone while lamotrigine is being titrated to a therapeutic dose range. - Both medications were initiated after thorough discussion of risks, benefits, and potential interactions. Reviewed concern for potential Alcazar- Michele syndrome with initiation of lamotrigine. Patient verbalized understanding of topics discussed, and asked appropriate questions. She is agreeable with initiation of these medications. - Fasting glucose and lipid panel ordered for tomorrow morning - Encourage this patient in group and recreational programming, as well as development of healthy and effective coping strategies - Encourage patient to participate in a family meeting involving outpatient supports in discharge and safety planning - Coordinate care with outpatient psychiatric prescriber, refer for outpatient therapy services 03/07 - Continue medications as above, titrating ziprasidone to effective dose as tolerated - Encourage participation in group and recreational programming, as patient has been largely isolative - Encourage family meeting - Fasting labs reviewed: triglycerides mildly elevated at 152, total cholesterol elevated at 239. All other values WNL 03/08 - Ziprasidone being titrated to 20mg BIDM to better target mood-related symptoms - Pt strongly encouraged to consider bringing a support in for a meeting to discuss the severity of her symptoms and involve someone in safety planning - Continue to encourage group participation 03/09 - Continue medications as above, patient reporting overall improvement in condition - Pt participated in family meeting with ex-boyfriend today, he remains supportive but codependency was a theme during the meeting - Continue to encourage participation in group and recreational therapy 03/10 - Continue current medication regimen - could consider further titration of ziprasidone to target mood symptoms - Family meeting with ex-boyfriend yesterday - has been exploring the idea of codependency through reading materials (3) Anxiety: 03/06 - Pt reports symptoms consistent with generalized anxiety disorder, also experiences panic attacks about once a month - Continue buspirone and fluoxetine - Hydroxyzine prn for acute anxiety - Encourage development of healthy and effective coping strategies 03/10 - Pt stating she had been taking hydroxyzine 25mg qAM and qHS at home, not the TID prn originally reported - She is requested a scheduled dose each morning, and was reminded that additional doses are available as needed Inventory Assets Strengths: Willingness for treatment, support of family and friends, current outpatient psychiatric prescriber Needs: Adjustments to medication regimen to target symptoms of depression and suicidal ideation, referral for outpatient psychiatry, development of a safety plan Risk Factors Assessment Male: No : Yes Do You Have Access To A Gun?: No Health Problems: No Mental Health Diagnoses: Yes Substance Use Disorders: No Previous Attempt: Yes Family History of Suicide: No Previous Psychiatric Hospitalization: Yes Hopelessness: Yes Smoker: Yes (quit 2 weeks ago) Protective Factors Assessment Jehovah'S Witness Beliefs: No : No Responsible for Young Children: Yes Employed: Yes ([employer] Work[employer]) Stable Relationships: No Supportive Family: Yes Interval History Identifying Information LUCY DELANEY is a 43-year-old F who currently lives in [place], with [id number] custody of her two teenage children. Pt has a reported history of bipolar disorder, and was admitted on 03/06/19 01:35 on a 201 voluntary commitment for worsening depression and suicidal ideation, with plan to overdose in combination with alcohol, and slit her wrists. Chief Complaint "Good, I feel like today is a little better." Review of Systems Notes Constitutional: reports improved sleep last evening Cardiovascular: denied Respiratory: denied Gastrointestinal: denied Neurological: denied Psychiatric: denies symptoms other than stated above Total of at least 10 systems reviewed, pertinent positives as above and in HPI. Sleep Information Total Hours of Sleep: 7.25 Sleep Comments: pt on q-15 minute checks Meal Information Percent Meal Consumed - Breakfast: 50 Percent Meal Consumed - Lunch: 100 Percent Meal Consumed - Dinner: 75 Subjective Subjective Patient was seen & assessed and interval progress reviewed with treatment team. Staff reports the patient had a family meeting involving her ex-boyfriend yesterday. She rated her mood a 6/10 and "unsure" last evening. Pt was seen today to assess progress since admission. Pt states she is feeling "good, a little better today." She admits that she slept well last evening, feeling "rested." Pt states that she has been reading the recommended book on codependency, and has been able to identify several relationships she feels have those characteristics (i.e., mother, ex-, and ex-boyfriend). Pt states that currently, she feels "a mental calm", but physically feels a bit restless. She is planning to request hydroxyzine after our discussion, as she is hoping to target this restlessness before it exacerbates further. Pt states at home, she take the hydroxyzine each morning, and is requesting to have a dose scheduled. 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 Pt denies other needs or concerns today. Physical Exam Psychiatric Orientation: alert, oriented x 3 and cooperative (and pleasant) Apperance: appropriately dressed, appropriately groomed and appeared stated age Eye Contact: good eye contact Motor Behavior: steady gait and station and no abnormal motor movements Speech: normal rate/rhythm/volume of speech Affect: + depressed affect (improving slowing over course of admission) and mood congruent with affect Mood: + depressed mood and + anxious mood ("physically a bit anxious right now") Thought Process: goal directed thought process, clear/coherent thought process and thought association intact Thought Content: reality based without delusions Suicidal Thoughts: denies suicidal thoughts Remains uncertain about ability to contract for safety outside of hospital setting Homicidal Thoughts: denies homicidal thoughts Hallucinations: no auditory hallucinations and no visual hallucinations Cognition: attention grossly intact and language grossly intact Insight: + fair insight Judgement: + fair judgement Vital Signs (Past 24 Hours) Last Vital Signs Temp 36.6 C 03/10/19 06:00 Pulse 83 03/10/19 06:33 Resp 18 03/10/19 06:00 BP 135/84 03/10/19 06:33 Pulse Ox 97 03/06/19 02:32 Results & Data Current Inpatient Medications Current Inpatient Medications: Current Inpatient Medications Acetaminophen (Tylenol) 650 mg PO Q4H PRN PRN Reason: Headache or Minor Fever Stop: 04/05/19 01:34 Last Admin: 03/06/19 11:16 Dose: 650 mg Documented by: Al Hydrox/Mg Hydrox/Simethicone (Maalox) 30 ml PO Q4H PRN PRN Reason: GI Upset Stop: 04/05/19 01:34 Bismuth Subsalicylate (Kaopectate) 15 ml PO PRN PRN PRN Reason: Loose Stool Stop: 04/05/19 01:34 Buspirone HCl (Buspar) 10 mg PO BID JA Stop: 04/05/19 08:59 Last Admin: 03/10/19 09:07 Dose: 10 mg Documented by: Fluoxetine HCl (Prozac) 60 mg PO QAM JA Stop: 04/05/19 08:59 Last Admin: 03/10/19 09:08 Dose: 60 mg Documented by: Hydroxyzine HCl (Vistaril) 25 mg PO Q4H PRN PRN Reason: Anxiety Stop: 04/05/19 01:34 Hydroxyzine HCl (Vistaril) 50 mg PO HSZ PRN PRN Reason: Insomnia Stop: 04/05/19 01:34 Last Admin: 03/06/19 02:53 Dose: 50 mg Documented by: Lamotrigine (Lamictal) 25 mg PO QAM JA Stop: 04/06/19 08:59 Last Admin: 03/10/19 09:07 Dose: 25 mg Documented by: Magnesium Hydroxide (Milk Of Magnesia) 30 ml PO DAILY PRN PRN Reason: Constipation Stop: 04/05/19 01:34 Sodium Chloride ([place] Nasal) 1 - 2 sprays NA PRN PRN PRN Reason: Nasal Dryness/Congestion Stop: 04/05/19 01:34 Trazodone HCl (Desyrel) 100 mg PO HS JA Stop: 04/05/19 21:59 Last Admin: 03/09/19 21:26 Dose: 100 mg Documented by: Ziprasidone (Geodon) 20 mg PO BIDM JA Stop: 04/07/19 17:44 Last Admin: 03/10/19 09:07 Dose: 20 mg Documented by: Mental Health & Subst Abuse Tx Psychiatrist Name of Psychiatrist: Darrel Chambers Psychiatrist's Date of Appointment with Psychiatrist: 03/21/19 Time of Appointment with Psychiatrist: 8:15pm Psychiatric Appointment Comment: [facility] [id number] Therapist Name of Therapist: Marco Hussein - Dr Lorraine Aragon Therapist's Date of Therapist Appointment: 05/05/18 Time of Therapist Appointment: 1pm - on cancel list, could call earlier. Therapy Appointment Comment: [address], [place] [address] Table Tender Name of Table Tender: [facility] Phone Number for Table Tender: [phone] Case Management Appointment Comment: [address], [place] [address] Post Discharge Appointments Primary Care Physician Name Of Family Doctor: Dr. Walker - [facility] Time of Appointment with PCP: Follow up as needed. Provider Appointment Comment: [address], [place] [address] Other #1: Name of Aftercare Appointment: [facility] Phone Number of Aftercare Appointment: [phone] Aftercare Appointment Comment: [address] [facility], [place] #2: Name of Aftercare Appointment: [facility] - Coby Cavazos Phone Number of Aftercare Appointment: [phone] Date of Aftercare Appointment: 04/11/19 Time of Aftercare Appointment: 10am Aftercare Appointment Comment: [address] [facility], [place] [address] Contact Information Discharge Discharge Address: [facility], [facility] [address] [place] [address] (1) Bipolar disorder Active/Remission status: currently active Current bipolar episode type: depressed Current episode severity: severe Psychotic features: without psychotic features Qualified Code(s): F31.4 - Bipolar disorder, current episode depressed, severe, without psychotic features
[2019-03-10] MEDS: TRAZODONE HCL 100 MG TAB PO SCH (21:02)
[2019-03-11] MEDS: ZIPRASIDONE HCL 20 MG CAP PO SCH ×2 (09:16→17:59)
[2019-03-11] MEDS: lamoTRIgine 25 MG TAB PO SCH (09:16)
[2019-03-11] MEDS: FLUOXETINE HCL 20 MG CAP PO SCH (09:16)
[2019-03-11] MEDS: ACETAMINOPHEN 325 MG TAB PO PRN (13:00)
--- NOTE | 2019-03-11 18:02 | Psychiatric Progress Note ---
Date of Service March 11, 2019 Impression / Recommendations Impression 43-year-old female admitted voluntarily for inpatient psychiatric treatment on 03/06/2019 due to reports of worsening depression and suicidal ideation. Patient verbalizes a plan to overdose in combination with drinking alcohol, and provided a rather detailed plan for how she would end her life. Patient states that she has noticed worsening of mood since 09/2018, and has had adverse effects with several medication trials in the interim. Pt was agreeable with initiating ziprasidone, according to outpatient treatment plan. We will also initiate lamotrigine, given limited need for blood draws and general weight neutrality. Ideally, ziprasidone would function to stabilize mood while lamotrigine is being titrated to therapeutic dosing. It may be possible to discontinue ziprasidone on an outpatient basis, if lamotrigine is effective singularly for mood stabilization. Patient will be encouraged to participate in group and recreational programming. Pt decided to involve her ex-boyfriend in a meeting to discuss discharge and safety planning and is still focused on engaging with him today by phone to attempt to settle herself down instead of engaging with staff or peers. She is with ongoing with SI along with some intent towards suicide as a means to obtain relief. Inpatient psychiatric treatment is medically necessary at this time given suicidal ideation with detailed plan, prior history of suicide attempt by overdose, prolonged depressive episode, and inability to contract for safety outside of the hospital setting. Patient remains at acute risk of harm to self if she is discharged prematurely, without adequate medication of risk factors. (1) Suicidal ideation: 03/06 - Admitted to a locked inpatient behavioral health unit, on q15 minute safety checks - Encourage medication initiation/adjustments as indicated - Encourage participation in group and recreational therapies - Gather collateral information from outpatient providers - Suggest family meeting to involve outpatient supports in safety planning - Arrange appropriate aftercare 03/07 - Admits to ongoing SI, verbalizing inability to contract for safety outside of the hospital setting - Pt states, "I'd be in the same place, requesting to come here." 03/08 - Denies SI today, but states that she is still unable to contract for safety - Reports having had SI "all day, every day, since September" - and feels this is not consistently resolved 03/09 - 03/10 - Denies SI today, and admits to feeling more positive, but denies feeling as though she can contract for safety outside of the hospital setting 03/11 addressed ongoing SI and to engage with staff regularly an fully about this with increase engagement if SI increases towards potential actions. staff is aware of her SI (2) Bipolar disorder: 03/06 - Request outpatient psychiatric records to clarify diagnosis - seems consistent most recently with bipolar type II, though prior reported behaviors would possibly meet criteria for elba - Will attempt to gather additional clinical information from outpatient psychiatric records - Pt agreeable with initiation of ziprasidone 20mg daily, a plan previously set into motion by her outpatient psychiatric prescriber. Will be provided this evening with dinner, then adjusted to breakfast dosing at patient's preference - Will initiate lamotrigine 25mg qAM starting tomorrow morning. Given patient's belief the medication had been effective for mood in the past and concerns for weight gain with atypical agents. Will attempt to stabilize mood with ziprasidone while lamotrigine is being titrated to a therapeutic dose range. - Both medications were initiated after thorough discussion of risks, benefits, and potential interactions. Reviewed concern for potential Alcazar- Michele syndrome with initiation of lamotrigine. Patient verbalized understanding of topics discussed, and asked appropriate questions. She is agreeable with initiation of these medications. - Fasting glucose and lipid panel ordered for tomorrow morning - Encourage this patient in group and recreational programming, as well as development of healthy and effective coping strategies - Encourage patient to participate in a family meeting involving outpatient supports in discharge and safety planning - Coordinate care with outpatient psychiatric prescriber, refer for outpatient therapy services 03/07 - Continue medications as above, titrating ziprasidone to effective dose as tolerated - Encourage participation in group and recreational programming, as patient has been largely isolative - Encourage family meeting - Fasting labs reviewed: triglycerides mildly elevated at 152, total cholesterol elevated at 239. All other values WNL 03/08 - Ziprasidone being titrated to 20mg BIDM to better target mood-related symptoms - Pt strongly encouraged to consider bringing a support in for a meeting to discuss the severity of her symptoms and involve someone in safety planning - Continue to encourage group participation 03/09 - Continue medications as above, patient reporting overall improvement in condition - Pt participated in family meeting with ex-boyfriend today, he remains supportive but codependency was a theme during the meeting - Continue to encourage participation in group and recreational therapy 03/10 - Continue current medication regimen - could consider further titration of ziprasidone to target mood symptoms - Family meeting with ex-boyfriend yesterday - has been exploring the idea of codependency through reading materials 03/11 - raised ziprasidone to 40mg bid starting with 03/11 evening dose educated about bipolar d/o and clarifying pt's symptom presentation addressed her codependency tendency and seeking out support from ex bf in manner that is seeming to keep her distressed and limiting her from obtaining further support from staff/peers (3) Anxiety: 03/06 - Pt reports symptoms consistent with generalized anxiety disorder, also experiences panic attacks about once a month - Continue buspirone and fluoxetine - Hydroxyzine prn for acute anxiety - Encourage development of healthy and effective coping strategies 03/10 - Pt stating she had been taking hydroxyzine 25mg qAM and qHS at home, not the TID prn originally reported - She is requested a scheduled dose each morning, and was reminded that additional doses are available as needed 03/11 - as above, and trreating primary bipolar d/o and adjsuting ways to settle self with less pulls towards ex -bf and adding other coping mechanisms to help settle self Inventory Assets Strengths: Willingness for treatment, support of family and friends, current outpatient psychiatric prescriber Needs: Adjustments to medication regimen to target symptoms of depression and suicidal ideation, referral for outpatient psychiatry, development of a safety plan Risk Factors Assessment Male: No : Yes Do You Have Access To A Gun?: No Health Problems: No Mental Health Diagnoses: Yes Substance Use Disorders: No Previous Attempt: Yes Family History of Suicide: No Previous Psychiatric Hospitalization: Yes Hopelessness: Yes Smoker: Yes (quit 2 weeks ago) Protective Factors Assessment Nondenominational Beliefs: No : No Responsible for Young Children: Yes Employed: Yes ([employer]) Stable Relationships: No Supportive Family: Yes Interval History Identifying Information LUCY DELANEY is a 43-year-old F who currently lives in [place], with [id number] custody of her two teenage children. Pt has a reported history of bipolar disorder, and was admitted on 03/06/19 01:35 on a 201 voluntary commitment for worsening depression and suicidal ideation, with plan to overdose in combination with alcohol, and slit her wrists. Chief Complaint "quite depressed ". Review of Systems Sleep Information Total Hours of Sleep: 6.5 Sleep Comments: pt on q-15 minute checks Meal Information Percent Meal Consumed - Breakfast: 50 Percent Meal Consumed - Lunch: 50 Percent Meal Consumed - Dinner: 80 Nutrition Comment: per meal record Subjective Subjective . Patient was observed being on the phone for extended time today talking to her ex-boyfriend as an attempt to help herself settle down as he was quite depressed with suicidal thinking especially in the morning. She shared to jingle writer about how she is tending to look around the unit for ways that she could possibly try and end her life and is aiming to not act on any of these and is willing to engage staff instead but does find that her mind just trends to think it would be easier or better to not have to be alive. Patient reports that she is working on establishing boundaries with her ex-boyfriend however she does not seem to be following through on this. She reports that she does not tend to let people in and instead over focuses on those that she is connected to. She indicated that she has been told she has bipolar disorder but that she does not really know if that is accurate. However in this assessment we reviewed manic and mixed symptoms And she identified with the symptoms and seemed to gain insight and acceptance into her condition. She reports seeming to tolerate Geodon and is open to having the dose raised. He denied rash or diarrhea or fever-like sympto ms she also denied nausea or involuntary muscle movements were said to feeling more sedated. That she feels like she has more energy and more alertness than before coming in. We reviewed the fact that she seems to not really get what she needs from her ex-boyfriend and that is more likely for her to get more assistance from engaging with staff and peers and she seemed willing to try that approach. Physical Exam Psychiatric Orientation: alert, oriented x 3 and cooperative (and pleasant) Apperance: appropriately dressed, appropriately groomed and appeared stated age Eye Contact: good eye contact Motor Behavior: steady gait and station and no abnormal motor movements Speech: normal rate/rhythm/volume of speech Affect: + constricted affect and mood congruent with affect Mood: + depressed mood Thought Process: goal directed thought process, clear/coherent thought process and thought association intact Thought Content: reality based without delusions and + loneliness; no hopelessness Suicidal Thoughts: + reports suicidal thoughts and + reports suicidal intent Homicidal Thoughts: denies homicidal thoughts Hallucinations: no auditory hallucinations and no visual hallucinations Cognition: attention grossly intact and language grossly intact Estimated Intelligence: consistent with education level Insight: + fair insight Judgement: + fair judgement Vital Signs (Past 24 Hours) Last Vital Signs Temp 36.6 C 03/11/19 06:00 Pulse 74 03/11/19 06:43 Resp 16 03/11/19 06:00 BP 119/81 03/11/19 06:43 Pulse Ox 97 03/06/19 02:32 Results & Data Current Inpatient Medications Current Inpatient Medications: Current Inpatient Medications Acetaminophen (Tylenol) 650 mg PO Q4H PRN PRN Reason: Headache or Minor Fever Stop: 04/05/19 01:34 Last Admin: 03/11/19 13:00 Dose: 650 mg Documented by: Al Hydrox/Mg Hydrox/Simethicone (Maalox) 30 ml PO Q4H PRN PRN Reason: GI Upset Stop: 04/05/19 01:34 Bismuth Subsalicylate (Kaopectate) 15 ml PO PRN PRN PRN Reason: Loose Stool Stop: 04/05/19 01:34 Buspirone HCl (Buspar) 10 mg PO BID [facility] Stop: 04/05/19 08:59 Last Admin: 03/11/19 09:16 Dose: 10 mg Documented by: Fluoxetine HCl (Prozac) 60 mg PO QAM [facility] Stop: 04/05/19 08:59 Last Admin: 03/11/19 09:16 Dose: 60 mg Documented by: Hydroxyzine HCl (Vistaril) 25 mg PO Q4H PRN PRN Reason: Anxiety Stop: 04/05/19 01:34 Last Admin: 03/10/19 13:43 Dose: 25 mg Documented by: Hydroxyzine HCl (Vistaril) 50 mg PO HSZ PRN PRN Reason: Insomnia Stop: 04/05/19 01:34 Last Admin: 03/06/19 02:53 Dose: 50 mg Documented by: Hydroxyzine HCl (Vistaril) 25 mg PO QAM [facility] Stop: 04/10/19 08:59 Last Admin: 03/11/19 13:00 Dose: 25 mg Documented by: Lamotrigine (Lamictal) 25 mg PO QAM [facility] Stop: 04/06/19 08:59 Last Admin: 03/11/19 09:16 Dose: 25 mg Documented by: Magnesium Hydroxide (Milk Of Magnesia) 30 ml PO DAILY PRN PRN Reason: Constipation Stop: 04/05/19 01:34 Sodium Chloride (Macon Nasal) 1 - 2 sprays NA PRN PRN PRN Reason: Nasal Dryness/Congestion Stop: 04/05/19 01:34 Trazodone HCl (Desyrel) 100 mg PO HS JA Stop: 04/05/19 21:59 Last Admin: 03/10/19 21:02 Dose: 100 mg Documented by: Ziprasidone (Geodon) 40 mg PO BIDM JA Stop: 04/10/19 17:44 Mental Health & Subst Abuse Tx Psychiatrist Name of Psychiatrist: Darrel Chambers Psychiatrist's Date of Appointment with Psychiatrist: 03/21/19 Time of Appointment with Psychiatrist: 8:15pm Psychiatric Appointment Comment: [address] [facility] [address] Therapist Name of Therapist: Suni Ramirez Therapist's Phone Number: [phone] Date of Therapist Appointment: 03/15/19 Time of Therapist Appointment: 2pm Therapy Appointment Comment: Therapist appt intake, [address] [address] [place] Name of [place]: [employer] Phone Number for [place]: [phone] Case Management Appointment Comment: [address] [facility] [address], [place] [address] Post Discharge Appointments Primary Care Physician Name Of Family Doctor: Dr. Aaron Cortez Primary [facility] Time of Appointment with PCP: Follow up as needed. Provider Appointment Comment: [address], [place] [address] Specialist Name of Specialist: Suni Ramirez Counseling Phone Number for Specialist: [phone] Date of Appointment with Specialist: 03/15/19 Time of Appointment with Specialist: 2:00 pm Specialty Appointment Comment: Therapist appt intake, [address] [address] Contact Information Discharge Discharge Address: [address], [place] [address] (1) Bipolar disorder Active/Remission status: currently active Current bipolar episode type: depressed Current episode severity: severe Psychotic features: without p sychotic features Qualified Code(s): F31.4 - Bipolar disorder, current episode depressed, severe, without psychotic features
[2019-03-11] MEDS: TRAZODONE HCL 100 MG TAB PO SCH (21:24)
[2019-03-12] MEDS: lamoTRIgine 25 MG TAB PO SCH (08:42)
[2019-03-12] MEDS: FLUOXETINE HCL 20 MG CAP PO SCH (08:42)
[2019-03-12] MEDS: ZIPRASIDONE HCL 20 MG CAP PO SCH ×2 (08:42→18:03)
--- NOTE | 2019-03-12 17:39 | Psychiatric Progress Note ---
Date of Service March 12, 2019 Impression / Recommendations Impression 43-year-old female admitted voluntarily for inpatient psychiatric treatment on 03/06/2019 due to reports of worsening depression and suicidal ideation. Patient verbalizes a plan to overdose in combination with drinking alcohol, and provided a rather detailed plan for how she would end her life. Patient states that she has noticed worsening of mood since 09/2018, and has had adverse effects with several medication trials in the interim. Pt was agreeable with initiating ziprasidone, according to outpatient treatment plan. We will also initiate lamotrigine, given limited need for blood draws and general weight neutrality. Ideally, ziprasidone would function to stabilize mood while lamotrigine is being titrated to therapeutic dosing. It may be possible to discontinue ziprasidone on an outpatient basis, if lamotrigine is effective singularly for mood stabilization. Patient will be encouraged to participate in group and recreational programming. Pt decided to involve her ex-boyfriend in a meeting to discuss discharge and safety planning and is still focused on engaging with him today by phone to attempt to settle herself down instead of engaging with staff or peers. today is first day of improvement and first day wihtout SI, pt imrpoving in insihgt and jdugment and more open to her dx. Inpatient psychiatric treatment is medically necessary at this time given suicidal ideation with detailed plan, prior history of suicide attempt by overdose, prolonged depressive episode, and inability to contract for safety outside of the hospital setting. Patient remains at acute risk of harm to self if she is discharged prematurely, without adequate mitigation of risk factors with some progress now being observed . (1) Suicidal ideation: 03/06 - Admitted to a locked inpatient behavioral health unit, on q15 minute safety checks - Encourage medication initiation/adjustments as indicated - Encourage participation in group and recreational therapies - Gather collateral information from outpatient providers - Suggest family meeting to involve outpatient supports in safety planning - Arrange appropriate aftercare 03/07 - Admits to ongoing SI, verbalizing inability to contract for safety outside of the hospital setting - Pt states, "I'd be in the same place, requesting to come here." 03/08 - Denies SI today, but states that she is still unable to contract for safety - Reports having had SI "all day, every day, since September" - and feels this is not consistently resolved 03/09 - 03/10 - Denies SI today, and admits to feeling more positive, but denies feeling as though she can contract for safety outside of the hospital setting 03/11 addressed ongoing SI and to engage with staff regularly an fully about this with increase engagement if SI increases towards potential actions. staff is aware of her SI 03/12 today no SI as mood seems to be improving as well and pt more accepting of her dx (2) Bipolar disorder: 03/06 - Request outpatient psychiatric records to clarify diagnosis - seems consistent most recently with bipolar type II, though prior reported behaviors would possibly meet criteria for elba - Will attempt to gather additional clinical information from outpatient psychiatric records - Pt agreeable with initiation of ziprasidone 20mg daily, a plan previously set into motion by her outpatient psychiatric prescriber. Will be provided this evening with dinner, then adjusted to breakfast dosing at patient's preference - Will initiate lamotrigine 25mg qAM starting tomorrow morning. Given patient's belief the medication had been effective for mood in the past and concerns for weight gain with atypical agents. Will attempt to stabilize mood with ziprasidone while lamotrigine is being titrated to a therapeutic dose range. - Both medications were initiated after thorough discussion of risks, benefits, and potential interactions. Reviewed concern for potential Alcazar- Michele syndrome with initiation of lamotrigine. Patient verbalized understanding of topics discussed, and asked appropriate questions. She is agreeable with initiation of these medications. - Fasting glucose and lipid panel ordered for tomorrow morning - Encourage this patient in group and recreational programming, as well as development of healthy and effective coping strategies - Encourage patient to participate in a family meeting involving outpatient supports in discharge and safety planning - Coordinate care with outpatient psychiatric prescriber[facility] 03/07 - Continue medications as above, titrating ziprasidone to effective dose as tolerated - Encourage participation in group and recreational programming, as patient has been largely isolative - Encourage family meeting - Fasting labs reviewed: triglycerides mildly elevated at 152, total cholesterol elevated at 239. All other values WNL 03/08 - Ziprasidone being titrated to 20mg BIDM to better target mood-related symptoms - Pt strongly encouraged to consider bringing a support in for a meeting to discuss the severity of her symptoms and involve someone in safety planning - Continue to encourage group participation 03/09 - Continue medications as above, patient reporting overall improvement in condition - Pt participated in family meeting with ex-boyfriend today, he remains supportive but codependency was a theme during the meeting - Continue to encourage participation in group and recreational therapy 03/10 - Continue current medication regimen - could consider further titration of ziprasidone to target mood symptoms - Family meeting with ex-boyfriend yesterday - has been exploring the idea of codependency through reading materials 03/11 - raised ziprasidone to 40mg bid starting with 03/11 evening dose educated about bipolar d/o and clarifying pt's symptom presentation addressed her codependency tendency and seeking out support from ex bf in manner that is seeming to keep her distressed and limiting her from obtaining further support from staff/peers 03/12 maintained ziprasidone at 40mg bid with food for now, with consideration of further titration as appropriate. monitoring for s/e maintaining other meds unchanged for now as well (3) Anxiety: 03/06 - Pt reports symptoms consistent with generalized anxiety disorder, also experiences panic attacks about once a month - Continue buspirone and fluoxetine - Hydroxyzine prn for acute anxiety - Encourage development of healthy and effective coping strategies 03/10 - Pt stating she had been taking hydroxyzine 25mg qAM and qHS at home, not the TID prn originally reported - She is requested a scheduled dose each morning, and was reminded that additional doses are available as needed 03/11 - as above, and trreating primary bipolar d/o and adjsuting ways to settle self with less pulls towards ex -bf and adding other coping mechanisms to help settle self Inventory Assets Strengths: Willingness for treatment, support of family and friends, current outpatient psychiatric prescriber Needs: Adjustments to medication regimen to target symptoms of depression and suicidal ideation, referral for outpatient psychiatry, development of a safety plan Risk Factors Assessment Male: No : Yes Do You Have Access To A Gun?: No Health Problems: No Mental Health Diagnoses: Yes Substance Use Disorders: No Previous Attempt: Yes Family History of Suicide: No Previous Psychiatric Hospitalization: Yes Hopelessness: Yes Smoker: Yes (quit 2 weeks ago) Protective Factors Assessment Confucianism Beliefs: No : No Responsible for Young Children: Yes Employed: Yes ([employer]) Stable Relationships: No Supportive Family: Yes Interval History Identifying Information LUCY DELANEY is a 43-year-old F who currently lives in [place], with [id number] custody of her two teenage children. Pt has a reported history of bipolar disorder, and was admitted on 03/06/19 01:35 on a 201 voluntary commitment for worsening depression and suicidal ideation, with plan to overdose in combination with alcohol, and slit her wrists. Chief Complaint feeling better today, notable shift . Review of Systems Sleep Information Total Hours of Sleep: 7 Sleep Comments: pt on q-15 minute checks Meal Information Percent Meal Consumed - Breakfast: 100 Percent Meal Consumed - Lunch: 60 Percent Meal Consumed - Dinner: 100 Nutrition Comment: per meal record Subjective Subjective Patient was seen & assessed and interval progress reviewed with nursing and social work. Patient shared how her mood is quite improved today brighter and without the negative thoughts that she was having previously she is without SI today and is no longer thinking about ways to end her life. She shared how reviewing the symptoms of bipolar disorder including milder aspects of elba helped her feel more clear about her bipolar disorder diagnosis and finding it that it does seem accurate for her. She shared about her codependency book that she has been reading and how she can identify with various aspects of it and that she has just started reading the section on recovery. She is expecting her adolescent children to visit today and she is looking forward to the visit and is aiming to discuss some about how she is in the hospital to help her manage her mood better and to help her be more in the middle instead of really up her overly down with them to help her children understand that is not about them and that progress is occurring. She has some fatigue but wonders if it is residual from her symptoms versus a potential s/e to Geodon dose raise as she was not tired after the dinner dose last night. She is denying other side effects to the medication Physical Exam Psychiatric Orientation: alert, oriented x 3 and cooperative (and pleasant) Apperance: appropriately dressed, appropriately groomed, + disheveled (Awoken from sleep, hair is unkempt and matted) and appeared stated age Eye Contact: good eye contact Motor Behavior: steady gait and station and no abnormal motor movements Speech: normal rate/rhythm/volume of speech brighter and calmer affect and mood congruent Mood: no anxious mood ("physically a bit anxious right now") mood much improved and better and calmer Thought Process: goal directed thought process, clear/coherent thought process and thought association intact Thought Content: reality based without delusions; no hopelessness Suicidal Thoughts: denies suicidal thoughts, denies suicidal plan and denies suicidal intent Homicidal Thoughts: denies homicidal thoughts Hallucinations: no auditory hallucinations and no visual hallucinations Cognition: attention grossly intact and language grossly intact Estimated Intelligence: consistent with education level Insight: + fair insight improving improving Vital Signs (Past 24 Hours) Last Vital Signs Temp 36.7 C 03/12/19 06:00 Pulse 76 03/12/19 06:25 Resp 18 03/12/19 06:00 BP 115/75 03/12/19 06:25 Pulse Ox 97 03/06/19 02:32 Results & Data Current Inpatient Medications Current Inpatient Medications: Current Inpatient Medications Acetaminophen (Tylenol) 650 mg PO Q4H PRN PRN Reason: Headache or Minor Fever Stop: 04/05/19 01:34 Last Admin: 03/11/19 13:00 Dose: 650 mg Documented by: Al Hydrox/Mg Hydrox/Simethicone (Maalox) 30 ml PO Q4H PRN PRN Reason: GI Upset Stop: 04/05/19 01:34 Bismuth Subsalicylate (Kaopectate) 15 ml PO PRN PRN PRN Reason: Loose Stool Stop: 04/05/19 01:34 Buspirone HCl (Buspar) 10 mg PO BID [facility] Stop: 04/05/19 08:59 Last Admin: 03/12/19 08:42 Dose: 10 mg Documented by: Fluoxetine HCl (Prozac) 60 mg PO QAM JA Stop: 04/05/19 08:59 Last Admin: 03/12/19 08:42 Dose: 60 mg Documented by: Hydroxyzine HCl (Vistaril) 25 mg PO Q4H PRN PRN Reason: Anxiety Stop: 04/05/19 01:34 Last Admin: 03/11/19 13:00 Dose: 25 mg Documented by: Hydroxyzine HCl (Vistaril) 50 mg PO HSZ PRN PRN Reason: Insomnia Stop: 04/05/19 01:34 Last Admin: 03/06/19 02:53 Dose: 50 mg Documented by: Hydroxyzine HCl (Vistaril) 25 mg PO QAM JA Stop: 04/10/19 08:59 Last Admin: 03/12/19 08:42 Dose: 25 mg Documented by: Lamotrigine (Lamictal) 25 mg PO QAM JA Stop: 04/06/19 08:59 Last Admin: 03/12/19 08:42 Dose: 25 mg Documented by: Magnesium Hydroxide (Milk Of Magnesia) 30 ml PO DAILY PRN PRN Reason: Constipation Stop: 04/05/19 01:34 Sodium Chloride ([place] Nasal) 1 - 2 sprays NA PRN PRN PRN Reason: Nasal Dryness/Congestion Stop: 04/05/19 01:34 Trazodone HCl (Desyrel) 100 mg PO HS JA Stop: 04/05/19 21:59 Last Admin: 03/11/19 21:24 Dose: 100 mg Documented by: Ziprasidone (Geodon) 40 mg PO BIDM JA Stop: 04/10/19 17:44 Last Admin: 03/12/19 08:42 Dose: 40 mg Documented by: Mental Health & Subst Abuse Tx Psychiatrist Name of Psychiatrist: Darrel Chambers Psychiatrist's Date of Appointment with Psychiatrist: 03/21/19 Time of Appointment with Psychiatrist: 8:15pm Psychiatric Appointment Comment: [id number] [id number] Therapist Name of Therapist: Suni Ramirez Therapist's Phone Number: [phone] Date of Therapist Appointment: 03/15/19 Time of Therapist Appointment: 2pm Therapy Appointment Comment: Therapist appt intake, [address] [facility] [address] Rock Picker Name of Rock Picker: [employer] Phone Number for Rock Picker: [phone] Case Management Appointment Comment: [address], [place] [address] Post Discharge Appointments Primary Care Physician Name Of Family Doctor: Dr. Aaron Cortez Primary [facility] Time of Appointment with PCP: Follow up as needed. Provider Appointment Comment: [address], [place] [address] Specialist Name of Specialist: Suni Ramirez Counseling Phone Number for Specialist: [phone] Date of Appointment with Specialist: 03/15/19 Time of Appointment with Specialist: 2:00 pm Specialty Appointment Comment: Therapist appt intake, [address] [facility] [address] Other #1: Name of Aftercare Appointment: Suni [facility] Phone Number of Aftercare Appointment: [phone] Aftercare Appointment Comment: [address] [facility], [place] #2: Name of Aftercare Appointment: [facility] - Coby Cavazos Phone Number of Aftercare Appointment: [phone] Date of Aftercare Appointment: 04/11/19 Time of Aftercare Appointment: 10am Aftercare Appointment Comment: [facility] , [place] [address] Contact Information Discharge Discharge Address: [facility], [place] [address] (1) Bipolar disorder Active/Remission status: currently active Current bipolar episode type: depressed Current episode severity: severe Psychotic features: without psychotic features Qualified Code(s): F31.4 - Bipolar disorder, current episode depressed, severe, without psychotic features
[2019-03-12] MEDS: TRAZODONE HCL 100 MG TAB PO SCH (21:06)
[2019-03-13] MEDS: FLUOXETINE HCL 20 MG CAP PO SCH (08:51)
[2019-03-13] MEDS: lamoTRIgine 25 MG TAB PO SCH (08:51)
[2019-03-13] MEDS: ZIPRASIDONE HCL 20 MG CAP PO SCH ×2 (08:51→17:49)
--- NOTE | 2019-03-13 10:52 | Psychiatric Progress Note ---
Date of Service March 13, 2019 Impression / Recommendations Impression 43-year-old female admitted voluntarily for inpatient psychiatric treatment on 03/06/2019 due to reports of worsening depression and suicidal ideation. Patient verbalizes a plan to overdose in combination with drinking alcohol, and provided a rather detailed plan for how she would end her life. Patient states that she has noticed worsening of mood since 09/2018, and has had adverse effects with several medication trials in the interim. Pt was agreeable with initiating ziprasidone, according to outpatient treatment plan. We will also initiate lamotrigine, given limited need for blood draws and general weight neutrality. Ideally, ziprasidone would function to stabilize mood while lamotrigine is being titrated to therapeutic dosing. It may be possible to discontinue ziprasidone on an outpatient basis, if lamotrigine is effective singularly for mood stabilization. Patient will be encouraged to participate in group and recreational programming. Pt decided to involve her ex-boyfriend in a meeting to discuss discharge and safety planning, with encouragement from staff to focus on codependency. 03/12 was reportedly first full day without SI; however, patient rather reactive this morning to a dream in which she was suicidal and experienced little positive support from friend. She is denying SI, but is unable to contract for safety outside of the hospital setting. Inpatient psychiatric treatment is medically necessary at this time given suicidal ideation with detailed plan, prior history of suicide attempt by overdose, prolonged depressive episode, and inability to contract for safety outside of the hospital setting. Patient remains at acute risk of harm to self if she is discharged prematurely, without adequate mitigation of risk factors with some progress now being observed . (1) Suicidal ideation: 03/06 - Admitted to a locked inpatient behavioral health unit, on q15 minute safety checks - Encourage medication initiation/adjustments as indicated - Encourage participation in group and recreational therapies - Gather collateral information from outpatient providers - Suggest family meeting to involve outpatient supports in safety planning - Arrange appropriate aftercare 03/07 - Admits to ongoing SI, verbalizing inability to contract for safety outside of the hospital setting - Pt states, "I'd be in the same place, requesting to come here." 03/08 - Denies SI today, but states that she is still unable to contract for safety - Reports having had SI "all day, every day, since September" - and feels this is not consistently resolved 03/09 - 03/10 - Denies SI today, and admits to feeling more positive, but denies feeling as though she can contract for safety outside of the hospital setting 03/11 addressed ongoing SI and to engage with staff regularly an fully about this with increase engagement if SI increases towards potential actions. staff is aware of her SI 03/12 today no SI as mood seems to be improving as well and pt more accepting of her dx 03/13 - Denies SI today, but rather distressed about dream last evening in which she was experiencing SI (2) Bipolar disorder: 03/06 - Request outpatient psychiatric records to clarify diagnosis - seems consistent most recently with bipolar type II, though prior reported behaviors would possibly meet criteria for elba - Will attempt to gather additional clinical information from outpatient psychiatric records - Pt agreeable with initiation of ziprasidone 20mg daily, a plan previously set into motion by her outpatient psychiatric prescriber. Will be provided this evening with dinner, then adjusted to breakfast dosing at patient's preference - Will initiate lamotrigine 25mg qAM starting tomorrow morning. Given patient's belief the medication had been effective for mood in the past and concerns for weight gain with atypical agents. Will attempt to stabilize mood with ziprasidone while lamotrigine is being titrated to a therapeutic dose range. - Both medications were initiated after thorough discussion of risks, benefits, and potential interactions. Reviewed concern for potential Alcazar- Michele syndrome with initiation of lamotrigine. Patient verbalized understanding of topics discussed, and asked appropriate questions. She is agreeable with initiation of these medications. - Fasting glucose and lipid panel ordered for tomorrow morning - Encourage this patient in group and recreational programming, as well as development of healthy and effective coping strategies - Encourage patient to participate in a family meeting involving outpatient supports in discharge and safety planning - Coordinate care with outpatient psychiatric prescriber, refer for outpatient therapy services 03/07 - Continue medications as above, titrating ziprasidone to effective dose as tolerated - Encourage participation in group and recreational programming, as patient has been largely isolative - Encourage family meeting - Fasting labs reviewed: triglycerides mildly elevated at 152, total cholesterol elevated at 239. All other values WNL 03/08 - Ziprasidone being titrated to 20mg BIDM to better target mood-related symptoms - Pt strongly encouraged to consider bringing a support in for a meeting to discuss the severity of her symptoms and involve someone in safety planning - Continue to encourage group participation 03/09 - Continue medications as above, patient reporting overall improvement in condition - Pt participated in family meeting with ex-boyfriend today, he remains supportive but codependency was a theme during the meeting - Continue to encourage participation in group and recreational therapy 03/10 - Continue current medication regimen - could consider further titration of ziprasidone to target mood symptoms - Family meeting with ex-boyfriend yesterday - has been exploring the idea of codependency through reading materials 03/11 - raised ziprasidone to 40mg bid starting with 03/11 evening dose educated about bipolar d/o and clarifying pt's symptom presentation addressed her codependency tendency and seeking out support from ex bf in manner that is seeming to keep her distressed and limiting her from obtaining further support from staff/peers 03/12 maintained ziprasidone at 40mg bid with food for now, with consideration of further titration as appropriate. monitoring for s/e maintaining other meds unchanged for now as well 03/13 - Continue current medication regimen - Continue to encourage participation in group and recreational programming - Develop additional coping strategies to improve stability of mood - Reviewed utilization of safety plan, specifically recognition of "warning signs" that would allow patient to engage in coping skills before SI would present (3) Anxiety: 03/06 - Pt reports symptoms consistent with generalized anxiety disorder, also experiences panic attacks about once a month - Continue buspirone and fluoxetine - Hydroxyzine prn for acute anxiety - Encourage development of healthy and effective coping strategies 03/10 - Pt stating she had been taking hydroxyzine 25mg qAM and qHS at home, not the TID prn originally reported - She is requested a scheduled dose each morning, and was reminded that additional doses are available as needed 03/11 - as above, and trreating primary bipolar d/o and adjsuting ways to settle self with less pulls towards ex -bf and adding other coping mechanisms to help settle self Inventory Assets Strengths: Willingness for treatment, support of family and friends, current outpatient psychiatric prescriber Needs: Adjustments to medication regimen to target symptoms of depression and suicidal ideation, referral for outpatient psychiatry, development of a safety plan Risk Factors Assessment Male: No : Yes Do You Have Access To A Gun?: No Health Problems: No Mental Health Diagnoses: Yes Substance Use Disorders: No Previous Attempt: Yes Family History of Suicide: No Previous Psychiatric Hospitalization: Yes Hopelessness: Yes Smoker: Yes (quit 2 weeks ago) Protective Factors Assessment Amish Beliefs: No : No Responsible for Young Children: Yes Employed: Yes ([employer]) Stable Relationships: No Supportive Family: Yes Interval History Identifying Information LUCY DELANEY is a 43-year-old F who currently lives in [place], with [id number] custody of her two teenage children. Pt has a reported history of bipolar disorder, and was admitted on 03/06/19 01:35 on a 201 voluntary commitment for worsening depression and suicidal ideation, with plan to overdose in combination with alcohol, and slit her wrists. Chief Complaint "Um, this morning has been pretty difficult. I don't know what it is with these dreams." Review of Systems Notes Constitutional: reports restless sleep last evening, disturbing dream Cardiovascular: denied Respiratory: denied Gastrointestinal: denied Neurological: denied Psychiatric: denies symptoms other than stated above Total of at least 10 systems reviewed, pertinent positives as above and in HPI. Sleep Information Total Hours of Sleep: 8.25 Sleep Comments: pt on q-15 minute checks Meal Information Percent Meal Consumed - Breakfast: 25 Percent Meal Consumed - Lunch: 60 Percent Meal Consumed - Dinner: 100 Nutrition Comment: per meal record Subjective Subjective Patient was seen & assessed and interval progress reviewed with treatment team. Staff report the patient had a rather difficult weekend, admitting to staff that she was experiencing active SI on Wednesday, with thoughts of how to harm herself on the unit. She denied SI on Wednesday, but is now stating that she had a distressing dream last evening, making this morning rather difficult. Pt was seen today to assess progress since admission. Pt states her dreams was related to "me being upset and crying, wanting to go to the hospital, and everyone telling me I was fine and need to get over it." Pt is denying SI this morning, but admits that her mood is pretty poor and her mind is racing as a result of this dream. Pt shares with this provider that she was having SI on Wednesday, searching out ways to harm herself on the unit - specifically considering drinking "a chemical from the cleaning cart if it was left unattended" or ingesting soap. She states, "If the windows opened, I would have jumped out head-first." She states that she was able to distract herself by "keeping busy", but remains concerned about her ability to handle these thoughts outside of the hospital. She is unable to contract for safety outside of the hospital setting today. Pt denies any physical concerns related to medication adjustments over the weekend. She denies other needs or concerns from staff, and verbalizes desire to refrain from retreating to bed today. Physical Exam Psychiatric Orientation: alert, oriented x 3 and cooperative Apperance: appropriately dressed, appropriately groomed (hair neatly styled, wearing corrective lenses on top of head) and appeared stated age Eye Contact: good eye contact Motor Behavior: steady gait and station and no abnormal motor movements Speech: normal rate/rhythm/volume of speech Affect: + depressed affect, + tearful affect and mood congruent with affect Mood: + depressed mood ("Not so good today") Thought Process: goal directed thought process, clear/coherent thought process and thought association intact Thought Content: reality based without delusions, + hopelessness and + self deprecation Suicidal Thoughts: denies suicidal thoughts (presently) Homicidal Thoughts: denies homicidal thoughts Hallucinations: no auditory hallucinations and no visual hallucinations Cognition: attention grossly intact and language grossly intact Insight: + fair insight Judgement: + fair judgement Vital Signs (Past 24 Hours) Last Vital Signs Temp 36.6 C 03/13/19 06:31 Pulse 75 03/13/19 06:31 Resp 18 03/13/19 06:31 BP 113/72 03/13/19 06:31 Pulse Ox 97 03/06/19 02:32 Results & Data Current Inpatient Medications Current Inpatient Medications: Current Inpatient Medications Acetaminophen (Tylenol) 650 mg PO Q4H PRN PRN Reason: Headache or Minor Fever Stop: 04/05/19 01:34 Last Admin: 03/11/19 13:00 Dose: 650 mg Documented by: Al Hydrox/Mg Hydrox/Simethicone (Maalox) 30 ml PO Q4H PRN PRN Reason: GI Upset Stop: 04/05/19 01:34 Bismuth Subsalicylate (Kaopectate) 15 ml PO PRN PRN PRN Reason: Loose Stool Stop: 04/05/19 01:34 Buspirone HCl (Buspar) 10 mg PO BID JA Stop: 04/05/19 08:59 Last Admin: 03/13/19 08:50 Dose: 10 mg Documented by: Fluoxetine HCl (Prozac) 60 mg PO QAM JA Stop: 04/05/19 08:59 Last Admin: 03/13/19 08:51 Dose: 60 mg Documented by: Hydroxyzine HCl (Vistaril) 25 mg PO Q4H PRN PRN Reason: Anxiety Stop: 04/05/19 01:34 Last Admin: 03/11/19 13:00 Dose: 25 mg Documented by: Hydroxyzine HCl (Vistaril) 50 mg PO HSZ PRN PRN Reason: Insomnia Stop: 04/05/19 01:34 Last Admin: 03/06/19 02:53 Dose: 50 mg Documented by: Hydroxyzine HCl (Vistaril) 25 mg PO QAM JA Stop: 04/10/19 08:59 Last Admin: 03/13/19 08:51 Dose: 25 mg Documented by: Lamotrigine (Lamictal) 25 mg PO QAM JA Stop: 04/06/19 08:59 Last Admin: 03/13/19 08:51 Dose: 25 mg Documented by: Magnesium Hydroxide (Milk Of Magnesia) 30 ml PO DAILY PRN PRN Reason: Constipation Stop: 04/05/19 01:34 Sodium Chloride (Wood Nasal) 1 - 2 sprays NA PRN PRN PRN Reason: Nasal Dryness/Congestion Stop: 04/05/19 01:34 Trazodone HCl (Desyrel) 100 mg PO HS JA Stop: 04/05/19 21:59 Last Admin: 03/12/19 21:06 Dose: 100 mg Documented by: Ziprasidone (Geodon) 40 mg PO BIDM JA Stop: 04/10/19 17:44 Last Admin: 03/13/19 08:51 Dose: 40 mg Documented by: Mental Health & Subst Abuse Tx Psychiatrist Name of Psychiatrist: Darrel Chambers Psychiatrist's Date of Appointment with Psychiatrist: 03/21/19 Time of Appointment with Psychiatrist: 8:15pm Psychiatric Appointment Comment: [address] [place] [place] [address] Therapist Name of Therapist: Suni Mccarthy Therapist's Phone Number: [phone] Date of Therapist Appointment: 03/15/19 Time of Therapist Appointment: 2pm Therapy Appointment Comment: Therapist appt intake, [address] [facility] [address] Newcomer Hostess Name of Newcomer Hostess: [employer] Phone Number for Newcomer Hostess: [phone] Case Management Appointment Comment: [address], [place] [address] Post Discharge Appointments Primary Care Physician Name Of Family Doctor: Dr. Aaron Cortez [facility] Time of Appointment with PCP: Follow up as needed. Provider Appointment Comment: [address] [place] [address] Specialist Name of Specialist: Suni Mccarthy [facility] Phone Number for Specialist: [phone] Date of Appointment with Specialist: 03/15/19 Time of Appointment with Specialist: 2:00 pm Specialty Appointment Comment: Therapist appt intake, [address] [facility] [address] Other #1: Name of Aftercare Appointment: Suni Mccarthy - [facility] Phone Number of Aftercare Appointment: [phone] Aftercare Appointment Comment: [address] [facility] [place] #2: Name of Aftercare Appointment: [facility] - Coby Cavazos Phone Number of Aftercare Appointment: [phone] Date of Aftercare Appointment: 04/11/19 Time of Aftercare Appointment: 10am Aftercare Appointment Comment: [address] [facility], [place] [address] Contact Information Discharge Discharge Address: [facility], [place] [address] (1) Bipolar disorder Active/Remission status: currently active Current bipolar episode type: depressed Current episode severity: severe Psychotic features: without psychotic features Qualified Code(s): F31.4 - Bipolar disorder, current episode depressed, severe, without psychotic features
[2019-03-13] MEDS: TRAZODONE HCL 100 MG TAB PO SCH (21:02)
[2019-03-14] MEDS: ZIPRASIDONE HCL 20 MG CAP PO SCH ×2 (08:34→17:34)
[2019-03-14] MEDS: FLUOXETINE HCL 20 MG CAP PO SCH (08:35)
[2019-03-14] MEDS: lamoTRIgine 25 MG TAB PO SCH (08:35)
--- NOTE | 2019-03-14 08:50 | Psychiatric Progress Note ---
Date of Service March 14, 2019 Impression / Recommendations Impression 43-year-old female admitted voluntarily for inpatient psychiatric treatment on 03/06/2019 due to reports of worsening depression and suicidal ideation. Patient verbalizes a plan to overdose in combination with drinking alcohol, and provided a rather detailed plan for how she would end her life. Patient states that she has noticed worsening of mood since 09/2018, and has had adverse effects with several medication trials in the interim. Pt was agreeable with initiating ziprasidone, according to outpatient treatment plan. We will also initiate lamotrigine, given limited need for blood draws and general weight neutrality. Ideally, ziprasidone would function to stabilize mood while lamotrigine is being titrated to therapeutic dosing. It may be possible to discontinue ziprasidone on an outpatient basis, if lamotrigine is effective singularly for mood stabilization. Patient will be encouraged to participate in group and recreational programming. Pt decided to involve her ex-boyfriend in a meeting to discuss discharge and safety planning, with encouragement from staff to focus on codependency. We are recommending another family meeting with a more local support, which patient expressed willingness to schedule. Pt has denies SI for 48 hours, but continues to be at continued risk of recurrence and possible acute destabilization. Inpatient psychiatric treatment is medically necessary at this time given suicidal ideation with detailed plan, prior history of suicide attempt by overdose, prolonged depressive episode, and inability to contract for safety outside of the hospital setting. Patient remains at acute risk of harm to self if she is discharged prematurely, without adequate mitigation of risk factors with some progress now being observed . (1) Suicidal ideation: 03/06 - Admitted to a locked inpatient behavioral health unit, on q15 minute safety checks - Encourage medication initiation/adjustments as indicated - Encourage participation in group and recreational therapies - Gather collateral information from outpatient providers - Suggest family meeting to involve outpatient supports in safety planning - Arrange appropriate aftercare 03/07 - Admits to ongoing SI, verbalizing inability to contract for safety outside of the hospital setting - Pt states, "I'd be in the same place, requesting to come here." 03/08 - Denies SI today, but states that she is still unable to contract for safety - Reports having had SI "all day, every day, since September" - and feels this is not consistently resolved 03/09 - 03/10 - Denies SI today, and admits to feeling more positive, but denies feeling as though she can contract for safety outside of the hospital setting 03/11 addressed ongoing SI and to engage with staff regularly an fully about this with increase engagement if SI increases towards potential actions. staff is aware of her SI 03/12 today no SI as mood seems to be improving as well and pt more accepting o f her dx 03/13 - Denies SI today, but rather distressed about dream last evening in which she was experiencing SI 03/14 - Denies SI today (2) Bipolar disorder: 03/06 - Request outpatient psychiatric records to clarify diagnosis - seems consistent most recently with bipolar type II, though prior reported behaviors would possibly meet criteria for elba - Will attempt to gather additional clinical information from outpatient psychiatric records - Pt agreeable with initiation of ziprasidone 20mg daily, a plan previously set into motion by her outpatient psychiatric prescriber. Will be provided this evening with dinner, then adjusted to breakfast dosing at patient's preference - Will initiate lamotrigine 25mg qAM starting tomorrow morning. Given patient's belief the medication had been effective for mood in the past and concerns for weight gain with atypical agents. Will attempt to stabilize mood with ziprasidone while lamotrigine is being titrated to a therapeutic dose range. - Both medications were initiated after thorough discussion of risks, benefits, and potential interactions. Reviewed concern for potential Alcazar-Michele syndrome with initiation of lamotrigine. Patient verbalized understanding of topics discussed, and asked appropriate questions. She is agreeable with initiation of these medications. - Fasting glucose and lipid panel ordered for tomorrow morning - Encourage this patient in group and recreational programming, as well as development of healthy and effective coping strategies - Encourage patient to participate in a family meeting involving outpatient supports in discharge and safety planning - Coordinate care with outpatient psychiatric prescriber, refer for outpatient therapy services 03/07 - Continue medications as above, titrating ziprasidone to effective dose as tolerated - Encourage participation in group and recreational programming, as patient has been largely isolative - Encourage family meeting - Fasting labs reviewed: triglycerides mildly elevated at 152, total cholesterol elevated at 239. All other values WNL 03/08 - Ziprasidone being titrated to 20mg BIDM to better target mood-related symptoms - Pt strongly encouraged to consider bringing a support in for a meeting to discuss the severity of her symptoms and involve someone in safety planning - Continue to encourage group participation 03/09 - Continue medications as above, patient reporting overall improvement in condition - Pt participated in family meeting with ex-boyfriend today, he remains s upportive but codependency was a theme during the meeting - Continue to encourage participation in group and recreational therapy 03/10 - Continue current medication regimen - could consider further titration of ziprasidone to target mood symptoms - Family meeting with ex-boyfriend yesterday - has been exploring the idea of codependency through reading materials 03/11 - raised ziprasidone to 40mg bid starting with 03/11 evening dose educated about bipolar d/o and clarifying pt's symptom presentation addressed her codependency tendency and seeking out support from ex bf in manner that is seeming to keep her distressed and limiting her from obtaining further support from staff/peers 03/12 maintained ziprasidone at 40mg bid with food for now, with consideration of further titration as appropriate. monitoring for s/e maintaining other meds unchanged for now as well 03/13 - Continue current medication regimen - Continue to encourage participation in group and recreational programming - Develop additional coping strategies to improve stability of mood - Reviewed utilization of safety plan, specifically recognition of "warning signs" that would allow patient to engage in coping skills before SI would present 03/14 - Continue current medication regimen for management of bipolar disorder - will titrate trazodone to 150mg daily given consistently poor sleep - Recommending additional family meeting, involving a more local support - patient planning to call co-worker/friend - Continue to encourage group participation - Continue to discuss and practice utilization of safety plan in preparation for discharge soon (3) Anxiety: 03/06 - Pt reports symptoms consistent with generalized anxiety disorder, also experiences panic attacks about once a month - Continue buspirone and fluoxetine - Hydroxyzine prn for acute anxiety - Encourage development of healthy and effective coping strategies 03/10 - Pt stating she had been taking hydroxyzine 25mg qAM and qHS at home, not the TID prn originally reported - She is requested a scheduled dose each morning, and was reminded that additional doses are available as needed 03/11 - as above, and trreating primary bipolar d/o and adjsuting ways to settle self with less pulls towards ex -bf and adding other coping mechanisms to help settle self Inventory Assets Strengths: Willingness for treatment, support of family and friends, current outpatient psychiatric prescriber Needs: Adjustments to medication regimen to target symptoms of depression and suicidal ideation, referral for outpatient psychiatry, development of a safety plan Risk Factors Assessment Male: No : Yes Do You Have Access To A Gun?: No Health Problems: No Mental Health Diagnoses: Yes Substance Use Disorders: No Previous Attempt: Yes Family History of Suicide: No Previous Psychiatric Hospitalization: Yes Hopelessness: Yes Smoker: Yes (quit 2 weeks ago) Protective Factors Assessment Yazidi Beliefs: No : No Responsible for Young Children: Yes Employed: Yes ([employer]) Stable Relationships: No Supportive Family: Yes Interval History Identifying Information LUCY DELANEY is a 43-year-old F who currently lives in [place], with [id number] custody of her two teenage children. Pt has a reported history of bipolar disorder, and was admitted on 03/06/19 01:35 on a 201 voluntary commitment for worsening depression and suicidal ideation, with plan to overdose in combination with alcohol, and slit her wrists. Chief Complaint "Yesterday wasn't bad. As the night comes, I tend to get anxious about my sleep." Review of Systems Notes Constitutional: reports restless, interrupted sleep last evening Cardiovascular: denied Respiratory: denied Gastrointestinal: denied Neurological: denied Psychiatric: denies symptoms other than stated above Total of at least 10 systems reviewed, pertinent positives as above and in HPI. Sleep Information Total Hours of Sleep: 7.25 Sleep Comments: pt on q-15 minute checks Meal Information Percent Meal Consumed - Breakfast: 25 Percent Meal Consumed - Lunch: 50 Percent Meal Consumed - Dinner: 75 Nutrition Comment: per meal record Subjective Subjective Patient was seen & assessed and interval progress reviewed with nursing and soci al work. Staff reports the patient had denied suicidality throughout the day yesterday. She appeared less anxious as the day went on, stating a bad dream made the morning somewhat difficult. Patient was seen today to assess progress since admission. She states that her day yesterday "was not bad." She perceives that her anxiety worsens in the evening, as "I tend to get anxious about sleep." She says that this specifically is related to the possibility of bad dreams. Patient states that she attempted to "turn my racing thoughts into positive thoughts" last evening, and hopes it would prevent negative dreams from occurring. Patient states that she did not experience any negative dreams last evening, but that her sleep overall was rather restless. Patient is requesting titration of trazodone, as "I remember when I first started it I slept really peacefully." Patient denies any significant concerns related to the rest of her medication regimen. She denies suicidal ideation today, and was encouraged to continue to utilize staff and other supports as needed to maintain these improvements in mood and anxiety. We discussed the recommendation that patient engage local supports in a family meeting. Patient shares with this provider that she was planning to call her mother today, who apparently still does not know that she is in the hospital. Patient reports feeling most comfortable involving a coworker and close friend in the meeting, as "she knows that I am here, she seen me cry before." Patient states she will call her friend to discuss the possibility of scheduling a meeting. Otherwise the patient denies any needs or concerns at this time. Physical Exam Psychiatric Orientation: alert, oriented x 3 and cooperative Apperance: appropriately dressed (casually, in zip-up sweatshirt and sweat pants), appropriately groomed and appeared stated age Eye Contact: good eye contact Motor Behavior: steady gait and station and no abnormal motor movements Speech: normal rate/rhythm/volume of speech Affect: + depressed affect and mood congruent with affect Mood: + depressed mood ("I think it's getting better, I don't know") and + anxious mood (in the evenings, surrounding poor sleep and bad dreams) Thought Process: goal directed thought process, clear/coherent thought process and thought association intact Thought Content: reality based without delusions; no hopelessness and no worthlessness Suicidal Thoughts: denies suicidal thoughts and denies suicidal intent Homicidal Thoughts: denies homicidal thoughts Hallucinations: no auditory hallucinations and no visual hallucinations Cognition: attention grossly intact and language grossly intact Insight: + fair insight Judgement: + fair judgement Vital Signs (Past 24 Hours) Last Vital Signs Temp 36.5 C 03/14/19 06:30 Pulse 70 03/14/19 06:30 Resp 18 03/14/19 06:30 BP 117/79 03/14/19 06:30 Pulse Ox 97 03/06/19 02:32 Results & Data Current Inpatient Medications Current Inpatient Medications: Current Inpatient Medications Acetaminophen (Tylenol) 650 mg PO Q4H PRN PRN Reason: Headache or Minor Fever Stop: 04/05/19 01:34 Last Admin: 03/11/19 13:00 Dose: 650 mg Documented by: Al Hydrox/Mg Hydrox/Simethicone (Maalox) 30 ml PO Q4H PRN PRN Reason: GI Upset Stop: 04/05/19 01:34 Bismuth Subsalicylate (Kaopectate) 15 ml PO PRN PRN PRN Reason: Loose Stool Stop: 04/05/19 01:34 Buspirone HCl (Buspar) 10 mg PO BID [facility] Stop: 04/05/19 08:59 Last Admin: 03/14/19 08:33 Dose: 10 mg Documented by: Fluoxetine HCl (Prozac) 60 mg PO QAM [facility] Stop: 04/05/19 08:59 Last Admin: 03/14/19 08:35 Dose: 60 mg Documented by: Hydroxyzine HCl (Vistaril) 25 mg PO Q4H PRN PRN Reason: Anxiety Stop: 04/05/19 01:34 Last Admin: 03/13/19 13:00 Dose: 25 mg Documented by: Hydroxyzine HCl (Vistaril) 50 mg PO HSZ PRN PRN Reason: Insomnia Stop: 04/05/19 01:34 Last Admin: 03/06/19 02:53 Dose: 50 mg Documented by: Hydroxyzine HCl (Vistaril) 25 mg PO QAM [facility] Stop: 04/10/19 08:59 Last Admin: 03/14/19 08:36 Dose: 25 mg Documented by: Lamotrigine (Lamictal) 25 mg PO QAM [facility] Stop: 04/06/19 08:59 Last Admin: 03/14/19 08:35 Dose: 25 mg Documented by: Magnesium Hydroxide (Milk Of Magnesia) 30 ml PO DAILY PRN PRN Reason: Constipation Stop: 04/05/19 01:34 Sodium Chloride ([place] Nasal) 1 - 2 sprays NA PRN PRN PRN Reason: Nasal Dryness/Congestion Stop: 04/05/19 01:34 Trazodone HCl (Desyrel) 100 mg PO HS JA Stop: 04/05/19 21:59 Last Admin: 03/13/19 21:02 Dose: 100 mg Documented by: Ziprasidone (Geodon) 40 mg PO BIDM [facility] Stop: 04/10/19 17:44 Last Admin: 03/14/19 08:34 Dose: 40 mg Documented by: Mental Health & Subst Abuse Tx Psychiatrist Name of Psychiatrist: Darrel Chambers Psychiatrist's Date of Appointment with Psychiatrist: 03/21/19 Time of Appointment with Psychiatrist: 8:15pm Psychiatric Appointment Comment: [facility], [facility] [address] Therapist Name of Therapist: Suni Mccarthy Therapist's Phone Number: [phone] Date of Therapist Appointment: 03/15/19 Time of Therapist Appointment: 2pm Therapy Appointment Comment: Therapist appt intake, [address] [facility] [address] Solar Installation Technician Name of Solar Installation Technician: [employer] Phone Number for Solar Installation Technician: [phone] Case Management Appointment Comment: [address], [place] [address] Post Discharge Appointments Primary Care Physician Name Of Family Doctor: Dr. Aaron Cortez Primary [facility] Time of Appointment with PCP: Follow up as needed. Provider Appointment Comment: [address] [place] [address] Specialist Name of Specialist: Suni Mccarthy Counseling Phone Number for Specialist: [phone] Date of Appointment with Specialist: 03/15/19 Time of Appointment with Specialist: 2:00 pm Specialty Appointment Comment: Therapist appt intake, [address] [facility] [address] Other #1: Name of Aftercare Appointment: Suni Mccarthy - [facility] Phone Number of Aftercare Appointment: [phone] Aftercare Appointment Comment: [facility] [place] #2: Name of Aftercare Appointment: [facility] - Coby Cavazos Phone Number of Aftercare Appointment: [phone] Date of Aftercare Appointment: 04/11/19 Time of Aftercare Appointment: 10am Aftercare Appointment Comment: [address] [facility] [address] Contact Information Discharge Discharge Address: [facility] [address] [place] [address] (1) Bipolar disorder Active/Remission status: currently active Current bipolar episode type: depressed Current episode severity: severe Psychotic features: without psychotic features Qualified Code(s): F31.4 - Bipolar disorder, current episode depressed, severe, without psychotic features
[2019-03-14] MEDS ORDERED: TRAZODONE HCL 50 MG TAB PO SCH (22:00)
[2019-03-15] MEDS: FLUOXETINE HCL 20 MG CAP PO SCH (08:56)
[2019-03-15] MEDS: ZIPRASIDONE HCL 20 MG CAP PO SCH (08:56)
[2019-03-15] MEDS: lamoTRIgine 25 MG TAB PO SCH (08:56)
--- NOTE | 2019-03-15 09:19 | Discharge Summary ---
Date of Service March 15, 2019 History of Present Illness Marielle Rodriguez is a 43-year-old female admitted voluntarily for inpatient psychiatric treatment on 03/06/2019, due to reports for worsening depression and suicidal ideation. Patient presented to the ED upon recommendation from a friend. She had verbalized a specific plan to overdose on pills in combination with alcohol, having had specific dates picked out, but pushing them back due to other obligations. It is reported the patient has had several recent medication adjustments, and has experienced medication side effects. She was reportedly due to begin ziprasidone; however, it remains at the pharmacy presently. Patient verbalized inability to contract for safety outside of the hospital setting, and was ultimately willing for inpatient psychiatric treatment. Her case was reviewed during treatment team. Patient is cooperative with psychiatric evaluation. She reports that her most recent depressive episode began in September, shortly after she realized an ex- boyfriend had moved on to another relationship. Patient admits, "ever since , I could feel myself going down, down, down." Patient states that she wanted to return to her previous prescription of fluoxetine, and set up an appointment with her PCP. Due to bipolar disorder diagnosis, patient was referred to [facility] for medication management. Patient states she has had several medication adjustments since that time, but states "I do not think I ever got out of my right since September." The patient states that she thinks about "dying every day." She admits, "now I am angry that I am here." Patient states that she will often have fleeting suicidal ideation, thinking "when I drive a car I see a tree I could recommend to, I see pills on the counter and I think about taking them all at once. I never realized that other people did not have similar thoughts all the time." The patient states that she had a rather detailed plan of how she would end her life, which included crushing her pills for faster absorption and taking them in combination with a bottle of alcohol she had purchased. Patient states that she had planned to lay in her bathtub and cut her wrists, "to make sure there was not a mess." Patient states she had planned to do it during the week when her ex- had custody of her teenage children, and early in the work week to ensure a coworker would question her absence, to ensure her children would not find her. Patient states "I had everything ready, I was going to do it last night." The patient states that she called a coworker and close friend "to say goodbye." The friend recommended she go to the emergency room for inpatient psychiatric treatment. Patient states that she is "disappointed" that she was unable to carry out her plan. Patient states she keeps pushing back the date as "my daughter and mother's birthdays we re in January. I had a day picked, but my boss asked me to work late and not screwed it all up." Patient reports depressive symptoms of increased desire to sleep, difficulty attending to laundry and other needs around the house, poor self-care, decreased motivation, decreased appetite, and hopelessness. Patient states that she is "doing the bare minimum." Symptoms of anxiety include feeling "nervous about pleasing everybody", isolative behavior, increased irritability, and episodes of panic attacks. Patient states she will experience a panic attack about once a month, often triggered by stressful situations. Physical symptoms during these times include chest tightness, shortness of breath, and crying spells. Patient states "I usually end up in a ball on the floor for 30 minutes." Patient states that she has been given a diagnosis of bipolar disorder, but does not believe that she has had "a manic phase" since 2011. Patient admits that during that time she was "crazy energetic, manic, off the charts." She states that this behavior triggered and admission to the behavioral health unit at [facility]. Patient does admit to having episodes of "being silly, goofy Soledad." She states that during these times she is reduced need for sleep, often only requiring about 3 hours. She admits to excessive spending during these times, and states that she has often sought sexual attention from males in social situations. Patient believes the last time she noticed these symptoms was in September 2018, prior to this current depressive episode. Pt denies HI, SIB, A/V hallucinations, paranoia, elba/hypomania, other symptoms more suggestive of a bipolar presentation, OCD, PTSD, eating disorder, and other specific psychiatric symptoms. Physical Exam Psychiatric Orientation: alert and cooperative Apperance: appropriately dressed and appropriately groomed Eye Contact: good eye contact Motor Behavior: steady gait and station and no abnormal motor movements Speech: normal rate/rhythm/volume of speech Affect: euthymic affect and mood congruent with affect "Good, better." Thought Process: goal directed thought process and linear/logical thought process Thought Content: reality based without delusions Suicidal Thoughts: denies suicidal thoughts Homicidal Thoughts: denies homicidal thoughts Hallucinations: no auditory hallucinations and no visual hallucinations Cognition: recent memory grossly intact, attention grossly intact and language grossly intact Insight: + fair insight Judgement: + fair judgement Vital Signs (Past 24 Hours) Last Vital Signs Temp 36.7 C 03/15/19 06:44 Pulse 76 03/15/19 06:45 Resp 18 03/15/19 06:44 BP 105/69 03/15/19 06:45 Pulse Ox 97 03/06/19 02:32 Principal Diagnosis Bipolar disorder type II, most recent episode depressed Generalized anxiety disorder Psychiatric Data The patient was hospitalized for 9 days. On admission, she was continued on her home doses of fluoxetine, trazodone, and buspirone, and started on ziprasidone and lamotrigine for bipolar depression. Ziprasidone was titrated to 40 mg twice daily, and trazodone increased for sleep. Her mood slowly improved throughout her stay, and she required staff encouragement to be out of bed and participating in treatment. She reported that she had been experiencing daily suicidal thoughts for the past 5 months, and was scared by the steps that she had taken towards ending her life prior to admission (going to the store to buy liquor and razor blades). She processed her difficulty in being open with her friends about how she is doing, and ways to increase utilization of her supports were explored. She was encouraged to involve friends and her treatment so that they could better support her in the future, but initially requested a meeting with her ex-boyfriend, which was held on 03/09/2019. He [place] in from out of state to be present for the meeting. They stated they had been together off and on throughout their lives, and after their breakup in the summer 2018, her ex got . They described an enmeshed and codependent relationship, and both were able to acknowledge this. They were both encouraged to read Codependent No More and to set healthy boundaries. The patient was hoping that her ex would leave his , but he said he would not do that. The need for additional, more appropriate, professional and social supports was discussed. The patient was resistant to recommendations for regular psychotherapy, but ultimately agreed to referrals for individual psychotherapy and case management, and said she wanted to look into DIPTI meetings. After much discussion with staff, she agreed to another meeting with a local friend, which was scheduled for the day of discharge. Her children visited while she was in the hospital, which she stated that her mood. She also made plans to reach out to members of her uatsdin and get involved in volunteer opportunities, and to attend [employer], a peers support group she had attended in the past. Her sleep improved, and suicidal ideation resolved. She reported improved mood and decreased anxiety. She stated she had been taking hydroxyzine 25 mg daily at home, so it was or dered on a scheduled basis. Day of Discharge Assessment Staff report the patient is attending and participating in groups and therapy, reporting improved mood and anxiety, and denying suicidal thoughts. She had a meeting this morning with her friend Stacy, which she states went well. She was nervous about it, as she struggles to ask others for help and doesn't want to be a burden. She states it went well, her friend was supportive, and they discussed boundaries, including things that her friend was and was not willing to do. She stated she put her friend in a bad position by asking her to contact her employer and run interference, and her friend gave her feedback about this. She is feeling hopeful and positive about the future, reports mood is improved, rates it a 6 out of 10, and denies SI. She is able to review her safety plan, including contacting her outpatient therapist or PA, Crisis, or her insurance case manager. She states she had an intake with the [facility] to be assigned a BCM. She denies any side effects to medication. She disclosed to staff that the razor blades she'd purchased were in her purse here, and staff removed them and dispo sed of them. She plans to dispose of the alcohol she bought when she returns home. She reports being "a little nervous" about going home, "but I'm just going to take it slow." She has a list of things she wants to do around the house, and is planning to contact her uatsdin to find something to do on Thanksgiving so that she won't be home alone, as children are going to be with their father. She also brought in all of her home medications, and the ones that have been discontinued (aripiprazole, topiramate, and lurasidone) will be safely disposed of. Transition of Care Transition Of Care Record: was reviewed with the patient Advance Directives Advance Directives Information Provided: Yes Advance Directives: No Mental Health Advance Directive: No Advance Directives on File: No Living Will: No Power of Environmental Restoration Planner: No Advance Directives Reason:: Declines as Mental Health Visit. Risk Factors Assessment Risk factors were mitigated by admission to the inpatient unit, use of medications to target mood, anxiety, and sleep, involving her in groups and therapy, working on healthy coping skills and her discharge safety plan, multiple family meetings to involve her outpatient supports, exploring ways to increase her social supports, referring her for a higher level of outpatient care to include psychotherapy and case management, and psychoeducation about her diagnoses and treatment recommendations. She is reporting improved mood, anxiety, and sleep, denying suicidal thoughts, tending to ADLs independently, eating and sleeping well, and is actively engaged in treatment. She is requesting discharge, and that she is no longer at acute risk of harm to herself, can be managed as an outpatient at this time. She is not at increased risk for harm to others. Male: No : Yes Do You Have Access To A Gun?: No Health Problems: No Mental Health Diagnoses: Yes Substance Use Disorders: No Previous Attempt: Yes Family History of Suicide: No Previous Psychiatric Hospitalization: Yes Hopelessness: Yes Smoker: Yes (quit 2 weeks ago) Protective Factors Assessment Mormonism Beliefs: No : No Responsible for Young Children: Yes Employed: Yes ([employer]) Stable Relationships: No Supportive Family: Yes Tobacco Cessation at Discharge Tobacco Cessation Medication Prescribed at Discharge: Not Applicable/Non-Smoker Total Time Total Time Spent: Greater Than 30 Minutes Total Time Includes: Examination of the patient, Discharge Planning and Medication Reconciliation Discharge Data Lab Results 03/05/19 03/05/19 03/05/19 22:36 22:36 23:00 WBC RBC Hgb Hct MCV MCH MCHC RDW Std Deviation RDW Coeff of Landy Plt Count MPV Immature Gran % (Auto) Neut % (Auto) Lymph % (Auto) Gem % (Auto) Eos % (Auto) Baso % (Auto) Immature Gran # (Auto) Neut # (Auto) Lymph # (Auto) Gem # (Auto) Eos # (Auto) Baso # (Auto) Sodium Potassium Chloride Carbon Dioxide Anion Gap BUN Creatinine Est Cr Clr Drug Dosing Est GFR ( Amer) Est GFR (Non-Af Amer) BUN/Creatinine Ratio Glucose Fasting Glucose Calcium Total Bilirubin AST ALT Alkaline Phosphatase Total Protein Albumin Globulin Albumin/Globulin Ratio Triglycerides Cholesterol LDL Cholesterol, Calc VLDL Cholesterol, Calc HDL Cholesterol Cholesterol/HDL Ratio TSH HCG, Qual Negative Urine Color Yellow Urine Appearance Cloudy A Urine pH 5.5 Ur Specific [place] 1.011 Urine Protein Negative Urine Glucose (UA) Negative Urine Ketones Negative Urine Blood Negative Urine Nitrite Negative Urine Bilirubin Negative Urine Urobilinogen Negative Ur Leukocyte Esterase Negative Urine WBC (Auto) 5-10 H Urine RBC (Auto) 0-4 U Hyaline Cast (Auto) 1-5 U Epithel Cells (Auto) >30 H Urine Bacteria (Auto) 1+ H Salicylates Urine Opiates Screen Neg Ur Methadone, Qual Neg Acetaminophen Urine Barbiturates Neg Ur Phencyclidine (PCP) Neg U Amphetamin/Meth Scrn Neg MDMA (Ecstasy) Screen Neg U Benzodiazepines Scrn Neg Ur Cocaine Metabolite Neg U Marijuana (THC) Screen Neg Ethyl Alcohol mg/dL 03/05/19 03/05/19 03/05/19 23:00 23:00 23:00 WBC 8.36 RBC 4.76 Hgb 14.4 Hct 41.5 MCV 87.2 MCH 30.3 MCHC 34.7 RDW Std Deviation 40.6 RDW Coeff of Landy 12.6 Plt Count 388 MPV 8.9 Immature Gran % (Auto) 0.2 Neut % (Auto) 67.9 Lymph % (Auto) 25.4 Gem % (Auto) 5.1 Eos % (Auto) 1.2 Baso % (Auto) 0.2 Immature Gran # (Auto) 0.02 Neut # (Auto) 5.67 Lymph # (Auto) 2.12 Gem # (Auto) 0.43 Eos # (Auto) 0.10 Baso # (Auto) 0.02 Sodium 139 Potassium 3.7 Chloride 109 H Carbon Dioxide 20 L Anion Gap 10.0 BUN 14 Creatinine 1.11 Est Cr Clr Drug Dosing 77.0 Est GFR ( Amer) 70.4 Est GFR (Non-Af Amer) 60.8 BUN/Creatinine Ratio 12.8 Glucose 108 H Fasting Glucose Calcium 8.9 Total Bilirubin 0.2 AST 10 L ALT 17 Alkaline Phosphatase 74 Total Protein 7.2 Albumin 3.5 Globulin 3.7 Albumin/Globulin Ratio 1.0 Triglycerides Cholesterol LDL Cholesterol, Calc VLDL Cholesterol, Calc HDL Cholesterol Cholesterol/HDL Ratio TSH 3.450 HCG, Qual Urine Color Urine Appearance Urine pH Ur Specific [place] Urine Protein Urine Glucose (UA) Urine Ketones Urine Blood Urine Nitrite Urine Bilirubin Urine Urobilinogen Ur Leukocyte Esterase Urine WBC (Auto) Urine RBC (Auto) U Hyaline Cast (Auto) U Epithel Cells (Auto) Urine Bacteria (Auto) Salicylates < 1.7 L Urine Opiates Screen Ur Methadone, Qual Acetaminophen < 2 L Urine Barbiturates Ur Phencyclidine (PCP) U Amphetamin/Meth Scrn MDMA (Ecstasy) Screen U Benzodiazepines Scrn Ur Cocaine Metabolite U Marijuana (THC) Screen Ethyl Alcohol mg/dL 03/05/19 03/07/19 23:00 06:51 WBC RBC Hgb Hct MCV MCH MCHC RDW Std Deviation RDW Coeff of Landy Plt Count MPV Immature Gran % (Auto) Neut % (Auto) Lymph % (Auto) Gem % (Auto) Eos % (Auto) Baso % (Auto) Immature Gran # (Auto) Neut # (Auto) Lymph # (Auto) Gem # (Auto) Eos # (Auto) Baso # (Auto) Sodium Potassium Chloride Carbon Dioxide Anion Gap BUN Creatinine Est Cr Clr Drug Dosing Est GFR ( Amer) Est GFR (Non-Af Amer) BUN/Creatinine Ratio Glucose Fasting Glucose 90 Calcium Total Bilirubin AST ALT Alkaline Phosphatase Total Protein Albumin Globulin Albumin/Globulin Ratio Triglycerides 152 H Cholesterol 239 H LDL Cholesterol, Calc 153 VLDL Cholesterol, Calc 30 HDL Cholesterol 56 Cholesterol/HDL Ratio 4 TSH HCG, Qual Urine Color Urine Appearance Urine pH Ur Specific [place] Urine Protein Urine Glucose (UA) Urine Ketones Urine Blood Urine Nitrite Urine Bilirubin Urine Urobilinogen Ur Leukocyte Esterase Urine WBC (Auto) Urine RBC (Auto) U Hyaline Cast (Auto) U Epithel Cells (Auto) Urine Bacteria (Auto) Salicylates Urine Opiates Screen Ur Methadone, Qual Acetaminophen Urine Barbiturates Ur Phencyclidine (PCP) U Amphetamin/Meth Scrn MDMA (Ecstasy) Screen U Benzodiazepines Scrn Ur Cocaine Metabolite U Marijuana (THC) Screen Ethyl Alcohol mg/dL < 3.0 Hospital Course (1) Suicidal ideation: 03/06 - Admitted to a locked inpatient behavioral health unit, on q15 minute safety checks - Encourage medication initiation/adjustments as indicated - Encourage participation in group and recreational therapies - Gather collateral information from outpatient providers - Suggest family meeting to involve outpatient supports in safety planning - Arrange appropriate aftercare 03/07 - Admits to ongoing SI, verbalizing inability to contract for safety outside of the hospital setting - Pt states, "I'd be in the same place, requesting to come here." 03/08 - Denies SI today, but states that she is still unable to contract for safety - Reports having had SI "all day, every day, since September" - and feels this is not consistently resolved 03/09 - 03/10 - Denies SI today, and admits to feeling more positive, but denies feeling as though she can contract for safety outside of the hospital setting 03/11 addressed ongoing SI and to engage with staff regularly an fully about this with increase engagement if SI increases towards potential actions. staff is aware of her SI 03/12 today no SI as mood seems to be improving as well and pt more accepting of her dx 03/13 - Denies SI today, but rather distressed about dream last evening in which she was experiencing SI 03/14 - Denies SI today 03/15 -Continues to deny suicidal thoughts, and is able to review her discharge safety plan in detail. (2) Bipolar disorder: 03/06 - Request outpatient psychiatric records to clarify diagnosis - seems consistent most recently with bipolar type II, though prior reported behaviors would possibly meet criteria for elba - Will attempt to gather additional clinical information from outpatient psychiatric records - Pt agreeable with initiation of ziprasidone 20mg daily, a plan previously set into motion by her outpatient psychiatric prescriber. Will be provided this evening with dinner, then adjusted to breakfast dosing at patient's preference - Will initiate lamotrigine 25mg qAM starting tomorrow morning. Given patient's belief the medication had been effective for mood in the past and concerns for weight gain with atypical agents. Will attempt to stabilize mood with ziprasidone while lamotrigine is being titrated to a therapeutic dose range. - Both medications were initiated after thorough discussion of risks, benefits, and potential interactions. Reviewed concern for potential Alcazar- Michele syndrome with initiation of lamotrigine. Patient verbalized understanding of topics discussed, and asked appropriate questions. She is agreeable with initiation of these medications. - Fasting glucose and lipid panel ordered for tomorrow morning - Encourage this patient in group and recreational programming, as well as development of healthy and effective coping strategies - Encourage patient to participate in a family meeting involving outpatient supports in discharge and safety planning - Coordinate care with outpatient psychiatric prescriber, refer for outpatient therapy services 03/07 - Continue medications as above, titrating ziprasidone to effective dose as tolerated - Encourage participation in group and recreational programming, as patient has been largely isolative - Encourage family meeting - Fasting labs reviewed: triglycerides mildly elevated at 152, total cholesterol elevated at 239. All other values WNL 03/08 - Ziprasidone being titrated to 20mg BIDM to better target mood-related symptoms - Pt strongly encouraged to consider bringing a support in for a meeting to discuss the severity of her symptoms and involve someone in safety planning - Continue to encourage group participation 03/09 - Continue medications as above, patient reporting overall improvement in condition - Pt participated in family meeting with ex-boyfriend today, he remains supportive but codependency was a theme during the meeting - Continue to encourage participation in group and recreational therapy 03/10 - Continue current medication regimen - could consider further titration of ziprasidone to target mood symptoms - Family meeting with ex-boyfriend yesterday - has been exploring the idea of codependency through reading materials 03/11 - raised ziprasidone to 40mg bid starting with 03/11 evening dose educated about bipolar d/o and clarifying pt's symptom presentation addressed her codependency tendency and seeking out support from ex bf in manner that is seeming to keep her distressed and limiting her from obtaining further support from staff/peers 03/12 - maintained ziprasidone at 40mg bid with food for now, with consideration of further titration as appropriate. monitoring for s/e maintaining other meds unchanged for now as well 03/13 - Continue current medication regimen - Continue to encourage participation in group and recreational programming - Develop additional coping strategies to improve stability of mood - Reviewed utilization of safety plan, specifically recognition of "warning signs" that would allow patient to engage in coping skills before SI would present 03/14 - Continue current medication regimen for management of bipolar disorder - will titrate trazodone to 150mg daily given consistently poor sleep - Recommending additional family meeting, involving a more local support - patient planning to call co-worker/friend - Continue to encourage group participation - Continue to discuss and practice utilization of safety plan in preparation for discharge soon 03/15 -Meeting held with friend, Stacy, who is a local support. Patient will benefit from ongoing therapy to address appropriate interpersonal boundaries. -Discontinued medications (lurasidone, topiramate, and aripiprazole) will be safely disposed off to limit access to large amounts of medications/decrease overdose risk. -Referred for outpatient therapy and case management. Follow-up at [facility] with GUNJAN Francois. (3) Anxiety: 03/06 - Pt reports symptoms consistent with generalized anxiety disorder, also experiences panic attacks about once a month - Continue buspirone and fluoxetine - Hydroxyzine prn for acute anxiety - Encourage development of healthy and effective coping strategies 03/10 - Pt stating she had been taking hydroxyzine 25mg qAM and qHS at home, not the TID prn originally reported - She is requested a scheduled dose each morning, and was reminded that additional doses are available as needed 03/11 - as above, and trreating primary bipolar d/o and adjsuting ways to settle self with less pulls towards ex -bf and adding other coping mechanisms to help settle self Mental Health & Subst Abuse Tx Psychiatrist Name of Psychiatrist: [facility] - Sh[facility]el Chambers Psychiatrist's Date of Appointment with Psychiatrist: 03/21/19 Time of Appointment with Psychiatrist: 8:15pm Psychiatric Appointment Comment: [address] [facility] [id number] Therapist Name of Therapist: Suni Ramirez LPC Therapist's Date of Therapist Appointment: 03/15/19 Time of Therapist Appointment: 2pm Therapy Appointment Comment: Therapist appt intake, [address] [facility] [address] Health Researcher Name of Health Researcher: [facility] Phone Number for Health Researcher: [phone] Time of Appointment with Health Researcher: They will call you at home to schedule an appointment. Case Management Appointment Comment: [address], [place] [address] Post Discharge Appointments Primary Care Physician Name Of Family Doctor: Dr. Aaron Cortez [facility] Time of Appointment with PCP: Follow up as needed. Provider Appointment Comment: [address], [place] [address] Specialist Name of Specialist: [facility] Phone Number for Specialist: [phone] Date of Appointment with Specialist: 03/15/19 Time of Appointment with Specialist: 2:00 pm Specialty Appointment Comment: Therapist appt intake, [address] [facility] [address] Smoking Cessation Counseling Tobacco Cessation Medication Prescribed at Discharge: Not Applicable/Non-Smoker Contact Information Discharge Discharge Address: [address], [place] [address] Discharge Plan Discharge Items Patient Disposition: Home - Self-Care Reason For Visit: BIPOLAR DISORDER Discharge Diagnosis: Polar disorder type II, most recent episode depressed Generalized anxiety disorder Activity: Per Instructions section Non-emergency contact: Psychiatrist and Therapist Call non-emergency contact if: you have any medication questions and your symptoms worsen Follow-up/Referrals: Nati Walker M.D. [Primary Care Provider] - Diet: Regular Addtl Attending Provider Instructions: SPECIAL CARE INSTRUCTIONS: 1. Follow through with your scheduled aftercare appointments. If unable to keep an appointment, please call to reschedule. 2. Take your medication only as prescribed. Medication should not be changed or stopped without the approval of your doctor. In the event of worsening symptoms or concerns about side effects, contact your doctor immediately. 3. Utilize new healthy coping skills, anger management skills, and stress management skills learned during your hospitalization. Journal feelings and process them with a support person. Identify stressors or situations that may result in relapse, deterioration or inappropriate behaviors and develop a plan to deal with those issues. 4. If your coping skills are ineffective and you are in crisis, contact your outpatient providers for direction. If unable to reach your providers, please call the CAN HELP LINE AT or go to the closest Emergency Room. 5. Avoid alcohol and un-prescribed drugs. 6. You have been provided with the Mental Health Advance Directives Pamphlet for your review. AFTERCARE APPOINTMENTS: * Please call your insurance company prior to your scheduled appointment to confirm your aftercare providers are covered. Take your insurance information to your appointments. WHO TO CALL AND WHEN: Medical Emergencies: For questions or emergencies related to your hospital stay, please contact the Inpatient Behavioral Health Unit at [phone]. A automobile salesman is on-call 16/11 for the Behavioral Health Unit for emergencies At any time you feel your situation is an emergency, you may also call 911 immediately. Your Doctors Instructions noted above were prepared by provider Marguerite Lane MD. Pending Studies at Discharge: No Stand-Alone Forms: [facility], Smoking Cessation, Suicide Prevention Resources Medications and DC Order Prescriptions: New lamotrigine [Lamictal] 25 mg Tablet 25 mg PO QAM Qty: 60 RF: 0 ziprasidone HCl 40 mg capsule 40 mg PO BID Qty: 60 RF: 0 Continued fluoxetine 40 mg capsule 40 mg PO QAM RF: 0 buspirone 10 mg tablet 10 mg PO BID RF: 0 fluoxetine 20 mg capsule 20 mg PO QAM RF: 0 hydroxyzine HCl 25 mg tablet 25 mg PO TID PRN (Reason: Anxiety) RF: 0 Changed trazodone 100 mg tablet 150 mg PO ONCE PM Qty: 0 RF: 0 Discontinued topiramate 50 mg tablet 50 mg PO BID RF: 0 Latuda 20 mg tablet 20 mg PO DAILY RF: 0 Discharge Orders: Discharge Order (Routine); Ordered 03/15/19 Ordered By: Marguerite Lane Admission Data Admit Date/Time: 03/06/19 01:35 Attending Provider: Marguerite Lane Admit Provider: Cece Conrteras Primary Care Provider: Nati Walker Other Interventions: PSY Interdisciplinary Discharge Planning Last Done: 03/15/19 10:31 Coding Level of Care Code 65271 D/C day mgmt > 30 min Diagnoses Suicidal ideation R45.851 Bipolar disorder F31.4 Active/Remission status: currently active Current bipolar episode type: depressed Current episode severity: severe Psychotic features: without psychotic features Anxiety F41.9
[2019-03-15] MEDS ORDERED: DESTROY THIS MEDICATION ONE (10:51)
== END 2019-03-15 12:53 | disposition home or self-care (01) | DRG 885 ==
LOC: ED 22:15 → 3S 03-06 01:35